=== PATIENT | female | born 1935 | race Caucasian/White ===

== ENCOUNTER 2016-12-24 16:43 | Inpatient (IN) | payer MEDICARE, OTHER ==
--- NOTE | 2016-12-24 18:55 | PCM.HP ---
H&P History of Present Illness - General Date of Service: 12/24/16 Source of Information: Patient History Limitations: Reports: No limitations - History of Present Illness Initial Comments - Free Text/Narative: 81 y o woman with apparent idiopathic cardiomyopathy has been feeling weak and tired lately following an apparent viral infection with sniffles cough to point of gagging and vomiting, as well as some diarrhea which has resolved. Her creatinine has doubled suggesting she is dehydrated vs intrinsic renal disease Onset of Symptoms: Reports: gradual Duration of Symptoms: Reports: Week(s):, Getting worse - Related Data Allergies/Adverse Reactions: Allergies Allergy/AdvReac Type Severity Reaction Status Date / Time morphine Allergy Vomiting Verified 10/09/16 14:11 Home Medications: Home Meds Levothyroxine Sodium 25 mcg PO MOWEFR 10/03/16 [History] Levothyroxine Sodium 50 mcg PO DAILY 10/03/16 [History] Lisinopril [Prinivil] 40 mg PO DAILY 10/03/16 [History] Furosemide [Lasix] 40 mg PO DAILY #30 tablet 10/05/16 [Rx] Metoprolol Succinate [Toprol XL] 200 mg PO DAILY #30 tab.er 10/05/16 [Rx] Potassium Chloride [Klor-Con M20] 20 meq PO DAILY #30 tab.er 10/05/16 [Rx] Rivaroxaban [Xarelto] 20 mg PO DAILY #30 tablet 10/05/16 [Rx] Past Medical History Cardiovascular History: Reports: Afib, Heart Failure, Hypertension Gastrointestinal History: Reports: Chronic constipation Musculoskeletal History: Reports: Arthritis Endocrine/Metabolic History: Reports: Hypothyroidism, Obesity/BMI 30+. Denies: Diabetes, type II - Infectious Disease History Infectious Disease History: Reports: Chicken pox, Measles, Mumps - Past Surgical History Cardiovascular Surgical History: Reports: None GI Surgical History: Reports: Cholecystectomy Social & Family History - Family History Family Medical History: Noncontributory - Tobacco Use Smoking Status *Q: Never Smoker Second Hand Smoke Exposure: No - Caffeine Use Caffeine Use: Reports: Coffee Caffeine Use Comment: 6 cups/day - Recreational Drug Use Recreational Drug Use: No - Living Situation & Occupation Living situation: Reports: Occupation: unemployed (long time college teacher retired 1999) H&P Review of Systems - Review of Systems: Review Of Systems: See Below General: Reports: weakness, fatigue HEENT: Reports: rhinitis Pulmonary: Reports: Shortness of Breath Cardiovascular: Reports: no symptoms Gastrointestinal: Reports: No symptoms Genitourinary: Reports: no symptoms Musculoskeletal: Reports: no symptoms, shoulder pain (gets injections, more helpful in knees than shoulders), leg pain Skin: Reports: no symptoms Psychiatric: Reports: no symptoms Exam - Exam Exam: See Below - Vital Signs Weight: 114.623 kg - Exam General: alert, oriented HEENT: Conjunctiva clear, Nares patent, Posterior pharynx clear (small pharyngeal opening) Neck: 2+ carotid pulse wo bruit Cardiovascular: irregular rhythm Abdomen: soft. No: tenderness (Female) Exam: Deferred Rectal (Female) Exam: Deferred Back Exam: normal inspection Extremities: normal inspection. No: edema Skin: warm, dry, intact Psychiatric: alert *Q Meaningful Use (ADM) - VTE *Q VTE Criteria *Q: - Stroke *Q Stroke Criteria *Q: - AMI *Q AMI Criteria *Q: Problem List Initiated/Reviewed/Updated: Yes Assessment/Plan Comment:: dilated cardiomyopathy atrial fibrillation azotemia hypothyroidism continue usual meds except diuretics and lisinopril gently hydrate overnight and recheck renal function
[2016-12-24] MEDS ORDERED: Sodium Chloride 0.9% 1,000 ML IV SCH ×3 (19:15→22:15)
[2016-12-25] MEDS: Levothyroxine 25 MCG Tab PO SCH (07:12)
[2016-12-25] MEDS ORDERED: Non-Formulary Medication 1 Each (Rivaroxaban [Xarelto] 20 MG) PO SCH (09:00)
[2016-12-25] MEDS ORDERED: Potassium Chloride 20 MEQ Tab.ER PO SCH (09:00)
[2016-12-25] MEDS: Metoprolol Succinate 100 MG Tab.ER PO SCH (09:53)
[2016-12-25] MEDS: Rivaroxaban 10 MG Tab PO SCH (09:54)
[2016-12-25] MEDS ORDERED: Sodium Chloride 0.9% 1,000 ML IV SCH ×2 (10:45→15:30)
--- NOTE | 2016-12-25 10:56 | PCM.PN ---
- General Info Date of Service: 12/25/16 Admission Dx/Problem (Free Text): Acute renal failure, dehydration Subjective Update: Feels "blah" this morning still. Feels a little stronger, but still has no appetite. Feels like mouth is dry and has "cotton mouth". No chest pain or SOB. Ambulating to bathroom. Functional Status: Reports: pain controlled, tolerating diet, ambulating, urinating - Review of Systems General: Reports: No Symptoms. Denies: Fever HEENT: Reports: no symptoms Pulmonary: Reports: no symptoms. Denies: shortness of breath, cough, sputum Cardiovascular: Denies: Chest Pain, Palpitations, Edema Gastrointestinal: Reports: No symptoms. Denies: Abdominal pain, Nausea, Vomiting Genitourinary: Reports: no symptoms. Denies: dysuria, frequency, burning - Patient Data Vitals - most recent: Last Vital Signs Temp 96.7 F 12/25/16 08:00 Pulse 95 12/25/16 09:53 Resp 20 12/25/16 08:00 BP 101/61 12/25/16 09:53 Pulse Ox 95 12/25/16 08:00 Weight - most recent: 114.623 kg I&O - last 24 hours: Intake & Output 12/24/16 12/25/16 12/25/16 22:59 06:59 14:59 Intake Total 1300 461 Output Total 250 Balance 1050 461 Lab Results last 24 hrs: Laboratory Results - last 24 hr 12/24/16 12/25/16 Range/Units 19:30 05:26 Sodium 135 L 135 L (136-146) mmol/L Potassium 5.6 H 5.6 H (3.5-5.1) mmol/L Chloride 103 105 (98-110) mmol/L Carbon Dioxide 20 L 20 L (21-31) mmol/L BUN 56 H 52 H (6.0-23.0) mg/dL Creatinine 1.5 1.4 (0.6-1.5) mg/dL Est Cr Clr Drug Dosing 29.28 31.25 mL/min Estimated GFR (MDRD) 33.2 36.0 ml/min Glucose 128 H 99 (60-110) mg/dL Calcium 9.3 8.9 (8.8-10.8) mg/dL Med Orders - Current: Current Medications Sodium Chloride (Normal Saline) 1,000 mls @ 75 mls/hr IV ASDIRECTED [facility] Stop: 12/25/16 11:34 Last Admin: 12/24/16 22:26 Dose: 75 mls/hr Sodium Chloride (Normal Saline) 1,000 mls @ 75 mls/hr IV [facility]IRECTED [facility] Levothyroxine Sodium (Levothyroxine) 25 mcg PO MoWeFr@0700 [facility] Levothyroxine Sodium (Levothyroxine) 50 mcg PO DAILY@0700 [facility] Last Admin: 12/25/16 07:12 Dose: 50 mcg Metoprolol Succinate (Toprol Xl) 200 mg PO DAILY [facility] Last Admin: 12/25/16 09:53 Dose: 200 mg Potassium Chloride (Klor-Con M20) 20 meq PO DAILY [facility] Rivaroxaban (Xarelto) 20 mg PO DAILY [facility] Last Admin: 12/25/16 09:54 Dose: 20 mg Discontinued Medications Sodium Chloride (Normal Saline) 1,000 mls @ 75 mls/hr IV .BOLUS [facility] Sodium Chloride (Normal Saline) 1,000 mls @ 75 mls/hr IV ASDIRECTED [facility] - Exam General: alert, oriented, cooperative HEENT: No: Mucous membr. moist/pink (mouth dry appearing) Lungs: Clear to auscultation, Normal respiratory effort Cardiovascular: Regular Rate, Regular Rhythm, No Murmurs Abdomen: bowel sounds present, soft, no tenderness, no distension Extremities: edema (+1-trace edema to BLE. ) Skin: warm, dry, intact Neurological: no new focal deficit Psy/Mental Status: alert, normal affect, normal mood - Problem List & Annotations (1) Atrial fibrillation SNOMED Code(s): 66286969 Code(s): I48.91 - UNSPECIFIED ATRIAL FIBRILLATION Status: Chronic Current Visit: No Qualifiers: Atrial fibrillation type: chronic Qualified Code(s): I48.2 - Chronic atrial fibrillation (2) Congestive heart failure SNOMED Code(s): 29305656 Code(s): I50.9 - HEART FAILURE, UNSPECIFIED Status: Chronic Current Visit : No Qualifiers: Congestive heart failure type: systolic Congestive heart failure chronicity : chronic Qualified Code(s): I50.22 - Chronic systolic (congestive) heart failure (3) Constipation SNOMED Code(s): 68508669 Code(s): K59.00 - CONSTIPATION, UNSPECIFIED Status: Chronic Current Visit : No Qualifiers: Constipation type: unspecified constipation type Qualified Code(s): K59.00 - Constipation, unspecified (4) Hypertension SNOMED Code(s): 71030262 Code(s): I10 - ESSENTIAL (PRIMARY) HYPERTENSION Status: Chronic Current Visit: No Qualifiers: Hypertension type: essential hypertension Qualified Code(s): I10 - Essential (primary) hypertension (5) Hypothyroidism SNOMED Code(s): 31129706 Code(s): E03.9 - HYPOTHYROIDISM, UNSPECIFIED Status: Chronic Current Visit: No Qualifiers: Hypothyroidism type: unspecified Qualified Code(s): E03.9 - Hypothyroidism , unspecified (6) Acute kidney injury SNOMED Code(s): 71154585 Code(s): N17.9 - ACUTE KIDNEY FAILURE, UNSPECIFIED Status: Acute Current Visit: Yes - Problem List Review Problem List Initiated/Reviewed/Updated: Yes - My Orders Last 24 Hours: My Active Orders 12/25/16 10:45 Sodium Chloride 0.9% @ 75 MLS/HR(1,000ml) Sodium Chloride 0.9% [Normal Saline] 1,000 ml IV ASDIRECTED - Plan Plan:: dilated cardiomyopathy atrial fibrillation azotemia hypothyroidism continue usual meds except diuretics and lisinopril gently hydrate overnight and recheck renal function 12/25/2016; 1. Acute renal injury: Slight improvement today. Will continue gentle fluids, monitoring closely fluid status. Will continue to hold Lisinopril and Lasix. Was having diarrhea and vomiting at home while continuing to take PO meds. Likely dehydrated, BP slightly hypotensive, 90-100s SBP. Monitor 2. Afib: Continue Metoprolol and Xarelto. Telemetry monitoring 3. Hyperkalemia: 5.6 today, will give small dose of Kayexalate. Now feeling constipated, has chronic constipation. 4. Hypothyroid: Continue Levothyroxine. VTE Xarelto Dispo: 1-2 days pending improvement.
[2016-12-25] MEDS ORDERED: Sodium Polystyrene Sulfonate 15 GM/60 ML Susp 60 ML Bot PO ONE (10:59)
--- NOTE | 2016-12-25 19:32 | CONS ---
DATE OF CONSULTATION: 12/25/2016 DATE OF : 1935 PRIMARY CARE PHYSICIAN: None PCP REASON FOR CONSULTATION: Managing atrial fibrillation, CULLEN, and medication management. HISTORY OF PRESENT ILLNESS: This is an 81-year-old female with history of chronic persistent atrial fibrillation on Xarelto, hypertension, hypothyroidism, and normal coronaries. She was seen by me in the clinic because of followup; however, she stated that over the past 10 days, she is being sick, has productive cough, no fever, and over the past two days she has the frequent diarrhea four times a day, it was watery, no abdominal pain, and she lost her appetite. In the clinic, her creatinine was rising from 0.7-1.5 and potassium was on the high side and her blood pressure was low in the clinic 80/60. That was the reason, she was admitted to the hospital. In the hospital, she was given the IV fluids pretty much 1000. Currently on normal saline at the rate of 75 mL/h. Her creatinine slightly improved to 1.4 and her diuretic including Aldactone and furosemide were on hold as well as ANTWAN inhibitor. CURRENT MEDICATIONS: Metoprolol XL 200 mg once a day, Xarelto, and levothyroxine. PAST MEDICAL HISTORY: Chronic persistent atrial fibrillation, hypertension, hypothyroidism, and nonischemic cardiomyopathy with ejection fraction of 30% to 35%. SOCIAL HISTORY: Occasionally drinks. No drug use. Nonsmoker. FAMILY HISTORY: Mother had a history of a stroke. Father had a history of hypertension. REVIEW OF SYSTEMS: A 12-point has been negative except indicated in the HPI. CARDIAC TESTING: Echocardiogram September 2016, ejection fraction 30% to 35% by atrial enlargement, [id number] MR, [id number] TR, normal aortic root, and on cardiac catheterization in November 2016 showed no significant CAD, LVEDP is 10. PHYSICAL EXAMINATION: VITAL SIGNS: Heart rate is 74; blood pressure is improving, actually initially it was 90/50, currently it is 139/99; and O2 saturation is 95% on room air; respiration rate is 20; temperature is 35.8. HEENT: Not pale. No jaundice. NECK: JVD is slightly elevated. HEART: Normal S1, S2. Totally irregular. Pansystolic murmur. LUNGS: Bilateral minimal crackles. No wheezing. ABDOMEN: Soft, nontender. Bowel sounds present. No hepatosplenomegaly. LEGS: 1+ edema bilaterally. INVESTIGATIONS: CBC showed WBCs 16, hematocrit of 39, platelet count of 362. Sodium 135, potassium 4.8, BUN 47, creatinine 1.3. Liver function is normal. ASSESSMENT AND PLAN: This is an 81-year-old female with nonischemic cardiomyopathy, chronic persistent atrial fibrillation on Xarelto, hypertension, hypothyroidism, ejection fraction of 30% to 35% with acute kidney injury most likely due to dehydration. She is getting gentle hydration right now. I agree with a rate of 75 mL/h. I would probably resume her back a half dose of Aldactone and furosemide, and I will resume the ANTWAN inhibitor as an outpatient and I will follow her as well. DAVIE / BENEDICT /[id number]
[2016-12-26] MEDS: Levothyroxine 25 MCG Tab PO SCH (06:14)
[2016-12-26] MEDS ORDERED: Levothyroxine 25 MCG Tab PO SCH (07:00)
[2016-12-26] MEDS: Rivaroxaban 10 MG Tab PO SCH (09:06)
[2016-12-26] MEDS: Metoprolol Succinate 100 MG Tab.ER PO SCH (09:09)
[2016-12-26 09:10] VITALS: BP 92/56
--- NOTE | 2016-12-26 09:23 | PCM.DCSUM1 ---
Discharge Summary - Hospital Course Brief History: This 81 year old female with pmh of atrial fibrilliaton on Xarelto for anticoagulation, HTN, and CHF presented with approximately 1 week of illness including N/V diarrhea and malaise. She has been taking medications as prescribed. She denied fever or chills, but reported marked weakness and malaise. In the ED Na 135, K+5.6, BUN 56, Cr 1.5. Baseline BUN/Cr 18/0.7. She takes ANTWAN inhibitor and Lasix at home. She was admitted due to dehydration and CULLEN. - Discharge Data Discharge Date: 12/26/16 Discharge Disposition: Home, Self-Care 01 Condition: Good - Discharge Diagnosis/Problem(s) (1) Atrial fibrillation SNOMED Code(s): 09926417 ICD Code: I48.91 - UNSPECIFIED ATRIAL FIBRILLATION Status: Chronic Current Visit: No Qualifiers: Atrial fibrillation type: chronic Qualified Code(s): I48.2 - Chronic atrial fibrillation (2) Congestive heart failure SNOMED Code(s): 40675350 ICD Code: I50.9 - HEART FAILURE, UNSPECIFIED Status: Chronic Current Visit: No Qualifiers: Congestive heart failure type: systolic Congestive heart failure chronicity : chronic Qualified Code(s): I50.22 - Chronic systolic (congestive) heart failure (3) Constipation SNOMED Code(s): 97576992 ICD Code: K59.00 - CONSTIPATION, UNSPECIFIED Status: Chronic Current Visit: No Qualifiers: Constipation type: unspecified constipation type Qualified Code(s): K59.00 - Constipation, unspecified (4) Hypertension SNOMED Code(s): 96816836 ICD Code: I10 - ESSENTIAL (PRIMARY) HYPERTENSION Status: Chronic Current Visit: No Qualifiers: Hypertension type: essential hypertension Qualified Code(s): I10 - Essential (primary) hypertension (5) Hypothyroidism SNOMED Code(s): 48657752 ICD Code: E03.9 - HYPOTHYROIDISM, UNSPECIFIED Status: Chronic Current Visit: No Qualifiers: Hypothyroidism type: unspecified Qualified Code(s): E03.9 - Hypothyroidism , unspecified (6) Acute kidney injury SNOMED Code(s): 02247280 ICD Code: N17.9 - ACUTE KIDNEY FAILURE, UNSPECIFIED Status: Acute Current Visit: Yes - Patient Summary/Data Consults: Consultations 12/24/16 19:12 Consult to Physician [CONS] Routine - Patient Instructions Diet: Heart Healthy Diet, Low Sodium Activity: As Tolerated Driving: May Drive Today Showering/Bathing: May Shower Notify Provider of: Fever, Increased Pain, Swelling and Redness, Drainage, Nausea and/or Vomiting - Discharge Plan Home Medications: Home Meds Levothyroxine Sodium 25 mcg PO MOWEFR 10/03/16 [History] Levothyroxine Sodium 50 mcg PO DAILY 10/03/16 [History] Metoprolol Succinate [Toprol XL] 200 mg PO DAILY #30 tab.er 10/05/16 [Rx] Potassium Chloride [Klor-Con M20] 20 meq PO DAILY #30 tab.er 10/05/16 [Rx] Rivaroxaban [Xarelto] 20 mg PO DAILY #30 tablet 10/05/16 [Rx] Furosemide [Lasix] 40 mg PO DAILY #30 tablet 12/26/16 [Rx] Referrals: Vincent No MD [Physician] - Zach Mendieta MD [Physician] - - Discharge Summary/Plan Comment DC Time >30 min.: No Discharge Summary/Plan Comment: Discharge Diagnoses: Dehydration CULLEN HTN CHF Afib on chronic anticoagulation Gloria was admitted and treated for 2 days with gentle fluids. BUN and Cr improved 38 and 1.0 today. Appetite is improving and she is taking oral fluids in well. She has not had any diarrhea or N/V since admission. She is doing well this morning and is feeling good to go home. Dr. No was consulted and recommended holding ANTWAN until outpatient follow up and cutting her Lasix in half until follow up as well. Will arrange follow up with Dr. No and Dr. Mendieta, PCP in 1 week. She is to return to clinic or ED if concerns should arise. - General Info Date of Service: 12/26/16 Admission Dx/Problem (Free Text: Acute renal failure, dehydration Subjective Update: Sitting up in chair today, finished breakfast. Feeling really good, didn't sleep well, but this is not unusual for her. Denies any chest pain Or SOB. She is eager for discharge. Functional Status: Reports: pain controlled, tolerating diet, ambulating, urinating - Review of Systems General: Reports: No Symptoms. Denies: Fever, Malaise HEENT: Reports: no symptoms. Denies: headaches, sinus congestion, sore throat Pulmonary: Reports: no symptoms. Denies: shortness of breath, cough, sputum Cardiovascular: Reports: No Symptoms. Denies: Chest Pain, Palpitations Gastrointestinal: Reports: No symptoms. Denies: Abdominal pain, Nausea, Vomiting Genitourinary: Reports: no symptoms. Denies: dysuria, frequency, burning Musculoskeletal: Reports: no symptoms Skin: Reports: no symptoms Neurological: Reports: No Symptoms Psychiatric: Reports: no symptoms - Patient Data Vitals - Most Recent: Last Vital Signs Temp 98.7 F 12/26/16 08:00 Pulse 85 12/26/16 08:00 Resp 18 12/26/16 08:00 BP 101/59 L 12/26/16 08:00 Pulse Ox 90 L 12/26/16 08:00 Weight - Most Recent: 105.596 kg I&O - Last 24 hours: Intake & Output 12/25/16 12/26/16 12/26/16 22:59 06:59 14:59 Intake Total 1077 850 Output Total 700 1025 Balance 377 -175 Lab Results - Last 24 hrs: Laboratory Results - last 24 hr 12/25/16 12/26/16 12/26/16 Range/Units 14:44 04:28 04:28 WBC 8.84 (4.0-11.0) K/uL RBC 3.85 L (4.30-5.90) M/uL Hgb 11.7 L (12.0-16.0) g/dL Hct 36.6 (36.0-46.0) % MCV 95.1 (80.0-98.0) fL MCH 30.4 (27.0-32.0) pg MCHC 32.0 (31.0-37.0) g/dL RDW Std Deviation 54.7 (28.0-62.0) fl RDW Coeff of Eunice 16 H (11.0-15.0) % Plt Count 367 (150-400) K/uL MPV 9.00 (7.40-12.00) fL Add Manual Diff YES Neutrophils % (Manual) 54 (48.0-80.0) % Band Neutrophils % 3 % Lymphocytes % (Manual) 28 (16.0-40.0) % Monocytes % (Manual) 2 (0.0-15.0) % Eosinophils % (Manual) 4 (0.0-7.0) % Basophils % (Manual) 1 (0.0-1.5) % Metamyelocytes % 8 % Nucleated RBC % 0.0 /100WBC Absolute Seg Neuts 4.8 Band Neutrophils # 0.3 Lymphocytes # (Manual) 2.5 Monocytes # (Manual) 0.2 Eosinophils # (Manual) 0.4 Basophils # (Manual) 0 Absolute Metamyelocyte 0.7 Nucleated RBCs # 0 K/uL Sodium 135 L 138 (136-146) mmol/L Potassium 4.8 4.9 (3.5-5.1) mmol/L Chloride 105 107 (98-110) mmol/L Carbon Dioxide 18 L 21 (21-31) mmol/L BUN 47 H 38 H (6.0-23.0) mg/dL Creatinine 1.3 1.0 (0.6-1.5) mg/dL Est Cr Clr Drug Dosing 33.66 43.75 mL/min Estimated GFR (MDRD) 39.2 53.1 ml/min Glucose 101 91 (60-110) mg/dL Calcium 8.6 L 8.1 L (8.8-10.8) mg/dL Med Orders - Current: Current Medications Levothyroxine Sodium (Levothyroxine) 25 mcg PO MoWeFr@0700 [facility] Last Admin: 12/26/16 06:13 Dose: 25 mcg Levothyroxine Sodium (Levothyroxine) 50 mcg PO DAILY@0700 [facility] Last Admin: 12/26/16 06:14 Dose: 50 mcg Metoprolol Succinate (Toprol Xl) 200 mg PO DAILY [facility] Last Admin: 12/25/16 09:53 Dose: 200 mg Rivaroxaban (Xarelto) 20 mg PO DAILY [facility] Last Admin: 12/25/16 09:54 Dose: 20 mg Discontinued Medications Sodium Chloride (Normal Saline) 1,000 mls @ 75 mls/hr IV .BOLUS [facility] Sodium Chloride (Normal Saline) 1,000 mls @ 75 mls/hr IV ASDIRECTED [facility] Sodium Chloride (Normal Saline) 1,000 mls @ 75 mls/hr IV ASDIRECTED [facility] Stop: 12/25/16 11:34 Last Admin: 12/24/16 22:26 Dose: 75 mls/hr Sodium Chloride (Normal Saline) 1,000 mls @ 75 mls/hr IV ASDIRECTED [facility] Last Admin: 12/25/16 11:04 Dose: 75 mls/hr Sodium Chloride (Normal Saline) 1,000 mls @ 75 mls/hr IV ASDIRECTED [facility] Stop: 12/26/16 00:04 Last Admin: 12/25/16 15:41 Dose: Not Given Potassium Chloride (Klor-Con M20) 20 meq PO DAILY [facility] Sodium Polystyrene Sulfonate (Kayexalate) 15 gm PO ONETIME ONE Stop: 12/25/16 11:00 Last Admin: 12/25/16 11:07 Dose: 15 gm - Exam General: Reports: alert, oriented, cooperative Neck: Reports: supple, no JVD Lungs: Reports: Clear to auscultation, Normal respiratory effort Cardiovascular: Reports: Regular Rate, Regular Rhythm Abdomen: Reports: bowel sounds present, soft, no tenderness, no distension Extremities: Reports: edema (trace +1 non-pitting edema to BLE) Wound/Incisions: Reports: healing well Neurological: Reports: no new focal deficit Psy/Mental Status: Reports: alert, normal affect, normal mood *Q Meaningful Use (DIS) - VTE *Q VTE Criteria *Q: VTE Pharmacological Contraindications *Q: Bld Coagulation Disorder - Stroke *Q Stroke Criteria *Q: - AMI *Q AMI Criteria *Q:
== END 2016-12-26 10:40 | disposition home or self-care (01) | DRG 309 ==
LOC: MW.MS 16:43
PROVIDERS: ADMIT Internal Medicine; ATTEND Internal Medicine
DX: I48.2 Chronic atrial fibrillation (principal); I50.22 Chronic systolic (congestive) heart failure; N17.9 Acute kidney failure, unspecified; K59.00 Constipation, unspecified; I10 Essential (primary) hypertension; E03.9 Hypothyroidism, unspecified; I42.9 Cardiomyopathy, unspecified; E86.0 Dehydration; Z79.899 Other long term (current) drug therapy; Z88.5 Allergy status to narcotic agent
CPT/HCPCS: 36415; 80048; 85025; A9270-GY; J7040

== ENCOUNTER → 2016-12-24 | Outpatient (CLI) | payer MEDICARE, OTHER | LOC: MW.CHIM 15:05 | PROVIDERS: ATTEND Internal Medicine | DX: I42.9 Cardiomyopathy, unspecified (principal); E03.9 Hypothyroidism, unspecified; I10 Essential (primary) hypertension; I11.0 Hypertensive heart disease with heart failure | CPT/HCPCS: 36415; 80053; 83880; 84443; 85025 ==

== ENCOUNTER → 2017-01-01 | Outpatient (CLI) | payer MEDICARE, OTHER | LOC: MW.CHIM 13:54 | PROVIDERS: ATTEND Internal Medicine | DX: R19.7 Diarrhea, unspecified (principal); I11.0 Hypertensive heart disease with heart failure; I48.1 Persistent atrial fibrillation; I42.9 Cardiomyopathy, unspecified; Z79.01 Long term (current) use of anticoagulants | CPT/HCPCS: 36415; 80048; 83880; 99214 ==

== ENCOUNTER 2018-05-25 08:45 | Emergency (ER) | payer MEDICARE, OTHER ==
--- NOTE | 2018-05-25 10:22 | EDM.PDOC ---
ED HPI GENERAL MEDICAL PROBLEM - General Chief Complaint: Lower Extremity Injury/Pain Stated Complaint: RT KNEE PAIN Time Seen by Provider: 05/25/18 10:18 Source of Information: Reports: Patient History Limitations: Reports: No Limitations - History of Present Illness INITIAL COMMENTS - FREE TEXT/NARRATIVE: HISTORY AND PHYSICAL: History of present illness: Patient is an 82-year-old female here with complaint of right knee pain and swelling. She states she woke up with it yesterday, denies any injury or trauma. She has OA of knees bilaterally and gets intra-articular steroid injections with Dr. Paul's office regularly. Patient normally ambulates without assistance but is using a walking currently. She denies any fevers, chills, chest pain, shortness of breath, nausea, vomiting, abdominal pain, calf pain, thigh pain. Review of systems: As per history of present illness and below otherwise all systems reviewed and negative. Past medical history: As per history of present illness and as reviewed below otherwise noncontributory. Surgical history: As per history of present illness and as reviewed below otherwise noncontributory. Social history: No reported history of drug or alcohol abuse. Family history: As per history of present illness and as reviewed below otherwise noncontributory. Physical exam: General: Patient sitting comfortably in no acute distress and nontoxic appearing HEENT: Atraumatic, normocephalic, pupils reactive, negative for conjunctival pallor or scleral icterus, mucous membranes moist, throat clear, neck supple, nontender, trachea midline. No meningeal signs. Lungs: Clear to auscultation, breath sounds equal bilaterally, chest nontender. Heart: S1S2, regular, negative for clicks, rubs, or overt murmur. 1+ pitting edema bilaterally. Abdomen: Soft, nondistended, nontender. Negative for masses or hepatosplenomegaly. Negative for costovertebral tenderness. Pelvis: Stable nontender. Genitourinary: Deferred. Rectal: Deferred. Extremities: right knee is swollen and slightly warm to touch without erythema. Pain to palpation of anterior and medial knee. Pain with flexion of the knee, ROM limited due to swelling. negative for cords or calf pain. Neurovascular unremarkable. Neuro: Awake, alert, oriented. Cranial nerves II through XII unremarkable. Cerebellum unremarkable. Motor and sensory unremarkable throughout. Exam nonfocal. Notes: Patient does live alone but will have daughter stay with her to help her get around until she can see orthopedics. Diagnostics: x-ray right knee Therapeutics: [facility] 5/325 Prescriptions: [facility] 5/325 #12 Impression: Right knee pain/effusion Plan: 1. Ice, elevate, and take norco as needed for severe pain. 2. Follow up with orthopedics, call number in the morning to schedule appointment 3. Return to ED as needed as discussed Definitive disposition and diagnosis as appropriate pending reevaluation and review of above. Right Knee Pain Score (Numeric/FACES): 9 - Related Data Allergies Allergy/AdvReac Type Severity Reaction Status Date / Time morphine Allergy Vomiting Verified 05/25/18 09:49 Home Meds: Home Meds Levothyroxine Sodium 25 mcg PO DAILY 10/03/16 [History] Levothyroxine Sodium 25 mcg PO MOWEFR 10/03/16 [History] Metoprolol Succinate [Toprol XL] 200 mg PO DAILY #30 tab.er 10/05/16 [Rx] Rivaroxaban [Xarelto] 20 mg PO DAILY #30 tablet 10/05/16 [Rx] Furosemide [Lasix] 40 mg PO DAILY #30 tablet 12/26/16 [Rx] Lisinopril 20 mg PO DAILY 05/25/18 [History] Omeprazole 40 mg PO DAILY 05/25/18 [History] Spironolactone [Aldactone] 12.5 mg PO DAILY 05/25/18 [History] traMADol [Ultram] 50 mg PO ASDIRECTED PRN 05/25/18 [History] Past Medical History HEENT History: Reports: Cataract, Impaired Vision Other HEENT History: wears glasses Cardiovascular History: Reports: Afib, Heart Failure, Hypertension Respiratory History: Reports: None Gastrointestinal History: Reports: Chronic Constipation Genitourinary History: Reports: None BED BUG EXTERMINATOR History: Reports: Musculoskeletal History: Reports: Arthritis Neurological History: Reports: None Psychiatric History: Reports: None Endocrine/Metabolic History: Reports: Hypothyroidism, Obesity/BMI 30+ Hematologic History: Reports: None Immunologic History: Reports: None Oncologic (Cancer) History: Reports: None Dermatologic History: Reports: Cellulitis - Infectious Disease History Infectious Disease History: Reports: Chicken Pox, Measles, Mumps - Past Surgical History Head Surgeries/Procedures: Reports: None HEENT Surgical History: Reports: Tonsillectomy Cardiovascular Surgical History: Reports: None Respiratory Surgical History: Reports: None Female Surgical History: Reports: Hysterectomy Social & Family History - Family History Family Medical History: Noncontributory HEENT: Reports: None Cardiac: Reports: None Respiratory: Reports: None GI: Reports: None : Reports: None OBGYN: Reports: None Musculoskeletal: Reports: None Neurological: Reports: None Psychiatric: Reports: None Endocrine/Metabolic: Reports: None Hematologic: Reports: None Immunologic: Reports: None Dermatologic: Reports: None Oncologic: Reports: None - Tobacco Use Smoking Status *Q: Never Smoker - Caffeine Use Caffeine Use: Reports: Coffee, Soda, Tea Caffeine Use Comment: 6 cups/day - Recreational Drug Use Recreational Drug Use: No - Living Situation & Occupation Living situation: Reports: Occupation: Unemployed Review of Systems - Review of Systems Review Of Systems: ROS reveals no pertinent complaints other than HPI. ED EXAM, GENERAL - Physical Exam Exam: See Below (see dictation) Course - Vital Signs Last Recorded V/S: Last Vital Signs Temp 36.4 C 05/25/18 09:45 Pulse 95 05/25/18 09:45 Resp 20 05/25/18 09:45 BP 148/110 H 05/25/18 09:45 Pulse Ox 95 05/25/18 09:45 - Orders/Labs/Meds Orders: Active Orders 24 hr Category Date Time Status Knee 3V Rt [CR] Stat Exams 05/25/18 09:48 Taken Meds: Medications Discontinued Medications Generic Name Dose Route Start Last Admin Trade Name Freq PRN Reason Stop Dose Admin Hydrocodone Bitart/Acetaminophen 1 tab 05/25/18 10:49 [facility] 325-5 Mg PO 05/25/18 10:50 ONETIME ONE Departure - Departure Time of Disposition: 11:09 Disposition: Home, Self-Care 01 Condition: Good Clinical Impression: Right knee pain - Discharge Information Referrals: Zach Mendieta MD [Primary Care Provider] - Forms: ED Department Discharge Additional Instructions: The following information is given to patients seen in the emergency department who are being discharged to home. This information is to outline your options for follow-up care. We provide all patients seen in our emergency department with a follow-up referral. The need for follow-up, as well as the timing and circumstances, are variable depending upon the specifics of your emergency department visit. If you don't have a primary care physician on staff, we will provide you with a referral. We always advise you to contact your personal physician following an emergency department visit to inform them of the circumstance of the visit and for follow-up with them and/or the need for any referrals to a consulting specialist. The emergency department will also refer you to a specialist when appropriate. This referral assures that you have the opportunity for follow-up care with a specialist. All of these measure are taken in an effort to provide you with optimal care, which includes your follow-up. Under all circumstances we always encourage you to contact your private physician who remains a resource for coordinating your care. When calling for follow-up care, please make the office aware that this follow-up is from your recent emergency room visit. If for any reason you are refused follow-up, please contact the [facility] Emergency Department at and asked to speak to the emergency department charge nurse. [facility] Specialty Care - Orthopedic Clinic Professional Building [address] [place] [address], [address] [place] [address] 1. Ice, elevate, and take norco as needed for severe pain. 2. Follow up with orthopedics, call number in the morning to schedule appointment 3. Return to ED as needed as discussed
[2018-05-25] MEDS ORDERED: Acetaminophen/HYDROcodone 325-5 MG Tab PO ONE (10:49)
[2018-05-25 11:11] VITALS: BP 123/86
--- NOTE | 2018-05-26 18:18 | CR ---
EXAM DATE: 05/25/18 PATIENT'S AGE: 82 Patient: FRANTZ SANTA Facility: [place], [place] Site . Site : [id number] Study: XRay Knee Right [id number]/[id number] 10:36:56 AM Ordering Physician: Doctor Morton Final Report: INDICATION: 82 year-old female. Right knee pain and swelling. No history of trauma. TECHNIQUE: Three views of the right knee. FINDINGS: Advanced osteoarthritis of the right knee with marked narrowing of the lateral compartment with spurring. Moderately severe narrowing of the medial compartment also with spurring. Narrowing and spurring of the patellofemoral compartment. On the lateral view there is the suggestion of a suprapatellar effusion with 2 calcifications likely loose bodies. IMPRESSION: Tricompartment advanced degenerative arthritis. Suprapatellar effusion with 1 or 2 small calcified loose bodies in the suprapatellar space. Consider MRI for further characterization. Dictated by Jonel Lundberg MD @ May 25 2018 10:53AM (Electronic Signature) Report Signed by Proxy. ISSA
== END 2018-05-25 11:25 | disposition home or self-care (01) ==
LOC: MW.ED 08:45
DX: M25.461 Effusion, right knee (principal); I11.0 Hypertensive heart disease with heart failure; I50.9 Heart failure, unspecified; E03.9 Hypothyroidism, unspecified; I48.91 Unspecified atrial fibrillation; Z79.899 Other long term (current) drug therapy
CPT/HCPCS: 73562; 99283; A9270

== ENCOUNTER 2020-07-10 15:47 | Observation (INO) | payer MEDICARE, OTHER ==
--- NOTE | 2020-07-10 16:47 | EDM.PDOC ---
<Marin Sutton - Last Filed: 07/10/20 18:57> ED HPI GENERAL MEDICAL PROBLEM - General Chief Complaint: General Stated Complaint: SWOLLEN JOINT PAIN Time Seen by Provider: 07/10/20 15:49 - History of Present Illness INITIAL COMMENTS - FREE TEXT/NARRATIVE: This is an 84-year-old female with a past medical history of atrial fibrillation on rivaroxaban, osteoarthritis of the bilateral knees and the left shoulder, status post right TKA, chronic left hip pain, chronic low back pain, lumbar spinal stenosis, hypothyroidism, hypertension, congestive heart failure presenting with complaints of joint pain. Patient does follow with the orthopedic surgery clinic for left knee pain. Status post right knee TKA. 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 Undergoing injections of hyaluronic acid to the left knee by orthopedic surgery clinic. Chart review from orthopedic surgery clinic also shows known chronic bilateral severe glenohumeral arthritis. She has been getting subacromial injections. She is not able to take NSAIDs due to her medical history and prior history of peptic ulcer disease. It looks like she is currently on diclofenac transdermal gel along with Ultram and Tylenol. These are prescribed by her primary doctor. Today she presents to the emergency department complaining of pain to multiple joints. She complains of a 1 week history of pain to her posterior cervical spine, pain to her left elbow, left hand, left knee, and left ankle. There is no history of trauma to any of these joints. She does have a history of chronic pain to the left knee. She also complains of slightly worsening bilateral lower extremity edema to the legs. She denies any history of polymyalgia rheumatica, myositis, or any autoimmune disease. No recent medication changes. Chart review shows that she is not on a statin medication. Denies any recent fever, denies joint swelling or redness or edema. She is intermittently taking her prescribed home pain medications without much relief. Today she was having so much pain that she was not able to get up and walk so she called police to come help her off the toilet. No other complaints at this point. Denies any numbness or weakness to any of her extremities. ROS: A 10-point review of systems was negative, except as noted in the HPI (or in the ROS section of this note). Past medical history: Reviewed, no additional pertinent history. Surgical history: Reviewed in system, no additional pertinent history. Social history: Reviewed in system, no additional pertinent history. Family history: Reviewed in system, no additional pertinent history. PHYSICAL EXAM Vital signs reviewed. Nursing notes reviewed. Constitutional: Awake, alert, non-distressed. Head: Normocephalic, atraumatic. Eyes: EOMI, conjunctiva normal, no discharge, no scleral icterus. Ears, Nose, Throat: External ears and nose normal, moist oral mucosa. Cardiovascular: 2+ bilateral radial pulses and left DP pulse, capillary refill less than 2 seconds in the left upper extremity and left lower extremity. Pulmonary: normal work of breathing, no accessory muscle use. Abdomen/GI: Soft, nontender, nondistended, no guarding or rigidity, no masses. Musculoskeletal: Moderate tenderness to palpation to the entirety of the left elbow joint, dorsum of the left hand, the lateral and superior aspects of the left patella, and the entirety of the left ankle joint. The neck and cervical spine are nontender and have normal range of motion. There is no evidence of any joint swelling, edema, or erythema to suggest an effusion or septic arthri tis. Integumentary: Appropriate color for ethnicity, warm, dry, no pallor or jaundice, no rash. Neurologic: Alert, answering questions appropriately, normal speech, no facial droop, moving all extremities well. 5/5 strength to the bilateral upper extremities. I am unable to strength test of the knee or ankle joints due to pain limitations. Sensation is intact to light touch to all 4 extremities. Psychiatric: Appropriate mood and affect, normal thought process. This patient was seen and evaluated during the 2019 SARS-CoV-2 novel coronavirus pandemic period. Community viral transmission is ongoing at time of this encounter and the emergency department is operating under pandemic response procedures. left elbow, L shoulder, L knee, L ankle Pain Score (Numeric/FACES): 5 - Related Data Allergies Allergy/AdvReac Type Severity Reaction Status Date / Time morphine Allergy Vomiting Verified 07/10/20 16:28 Home Meds: Home Meds Levothyroxine Sodium 50 mcg PO DAILY 10/03/16 [History] Metoprolol Succinate [Toprol XL] 200 mg PO DAILY #30 tab.er 10/05/16 [Rx] Furosemide [Lasix] 40 mg PO DAILY #30 tablet 12/26/16 [Rx] Lisinopril 5 mg PO DAILY 05/25/18 [History] Omeprazole 40 mg PO DAILY 05/25/18 [History] Spironolactone [Aldactone] 12.5 mg PO DAILY 05/25/18 [History] Blood Thinner 07/10/20 [History] Pantoprazole [ProTONIX] 40 mg PO DAILY 07/10/20 [History] Pregabalin [Lyrica] 1 tab PO BID 07/10/20 [History] methocarbamoL [Methocarbamol] 1 tab PO BID PRN 07/10/20 [History] oxyCODONE HCl/Acetaminophen [Oxycodone-Acetaminophen 5-325] 1 tab PO Q6H PRN 07/10/20 [History] Past Medical History HEENT History: Reports: Cataract, Impaired Vision Other HEENT History: wears glasses Cardiovascular History: Reports: Afib, Heart Failure, Hypertension Respiratory History: Reports: None Gastrointestinal History: Reports: Chronic Constipation Genitourinary History: Reports: None HANDYPERSON History: Reports: Musculoskeletal History: Reports: Arthritis Neurological History: Reports: None Psychiatric History: Reports: None Endocrine/Metabolic History: Reports: Hypothyroidism, Obesity/BMI 30+ Hematologic History: Reports: None Immunologic History: Reports: None Oncologic (Cancer) History: Reports: None Dermatologic History: Reports: Cellulitis - Infectious Disease History Infectious Disease History: Reports: Chicken Pox, Measles, Mumps - Past Surgical History Head Surgeries/Procedures: Reports: None HEENT Surgical History: Reports: Tonsillectomy Cardiovascular Surgical History: Reports: None Respiratory Surgical History: Reports: None GI Surgical History: Reports: Cholecystectomy Female Surgical History: Reports: Hysterectomy Social & Family History - Family History Family Medical History: No Pertinent Family History HEENT: Reports: None Cardiac: Reports: None Respiratory: Reports: None GI: Reports: None : Reports: None OBGYN: Reports: None Musculoskeletal: Reports: None Neurological: Reports: None Psychiatric: Reports: None Endocrine/Metabolic: Reports: None Hematologic: Reports: None Immunologic: Reports: None Dermatologic: Reports: None Oncologic: Reports: None - Tobacco Use Tobacco Use Status *Q: Never Tobacco User - Caffeine Use Caffeine Use: Reports: Coffee, Soda, Tea Caffeine Use Comment: 6 cups/day - Recreational Drug Use Recreational Drug Use: No - Living Situation & Occupation Living situation: Reports: Occupation: Unemployed ED ROS GENERAL - Review of Systems Review Of Systems: See Below ED EXAM, GENERAL - Physical Exam Exam: See Below Course - Vital Signs Text/Narrative:: 84-year-old female complaining of pain in numerous joints including the left elbow, left hand, left knee, and left ankle without any history of trauma. Patient hemodynamically stable, afebrile, well-appearing, looks nontoxic. Differential diagnosis includes but is not limited to: Osteoarthritis, polymyalgia rheumatica, myositis, rhabdomyolysis, thyroid disease, electrolyte disturbance, myalgias, chronic joint pain, occult trauma, and many others. 1719: Patient is neurovascularly intact in the left upper and lower extremities. There is no evidence of joint effusion to suggest gout or septic arthritis. I see no deformities or obvious trauma. We are going to administer some pain medications and obtain x-rays of the left elbow and hand, left knee and ankle. Patient is resting comfortably. 1856: I reviewed her x-rays and they show no obvious injury but do look diffusely arthritic. We are still waiting for her labs to resolve the time of shift change. I signed the patient out to my colleague Dr. Lopez. Anticipate the patient will be admitted to the hospital at least on observation for physical therapy evaluation and to address her lower extremity edema, may need nephrology social worker evaluation as well. Refer to Dr. Lopez's note for the disposition please Departure - Departure Disposition: Refer to Observation Clinical Impression: Weakness, Joint pain, Inability to walk Hypothyroidism Qualifiers: Hypothyroidism type: unspecified Qualified Code(s): E03.9 - Hypothyroidism, unspecified - Discharge Information Referrals: Zach Mendieta MD [Primary Care Provider] - Forms: ED Department Discharge Sepsis Event Note (ED) - Evaluation Sepsis Screening Result: No Definite Risk <Kiran Lopez - Last Filed: 07/10/20 20:31> Course - Vital Signs Text/Narrative:: This patient is in no acute distress when she does not try to ambulate. However she lives alone. She is unable to get up because of her joint pain. She is unable to take care of her self. She is on thyroid replacement and her TSH is elevated. Free T4 pending. Case discussed with Dr. Son and she had agreed to place the patient in observation and for immobility or thyroid correction takes more than 2 midnights she may become a full admission and placement issue. At this point COVID-19 test is pending. Patient is asymptomatic. If she is negative we will place her in observation tonight. 2028 hours Covid 19 is negative and patient will be admitted to Dr. Garzon initially as observation. Last Recorded V/S: Last Vital Signs Temp 36.8 C 07/10/20 16:23 Pulse 112 H 07/10/20 20:05 Resp 18 07/10/20 16:23 BP 124/72 07/10/20 20:05 Pulse Ox 91 L 07/10/20 20:05 - Orders/Labs/Meds Orders: Active Orders 24 hr Category Date Time Status Sodium Chloride 0.9% [Saline Flush] Med 07/10/20 18:55 Active 10 ml FLUSH ASDIRECTED PRN Sodium Chloride 0.9% [Saline Flush] Med 07/10/20 18:55 Active 2.5 ml FLUSH ASDIRECTED PRN Saline Lock Insert [OM.PC] Stat Oth 07/10/20 18:55 Ordered Medication Orders Sodium Chloride (Saline Flush) 10 ml FLUSH ASDIRECTED PRN PRN Reason: Keep Vein Open Sodium Chloride (Saline Flush) 2.5 ml FLUSH ASDIRECTED PRN PRN Reason: Keep Vein Open Labs: Laboratory Tests 07/10/20 07/10/20 07/10/20 Range/Units 19:07 19:07 19:07 WBC 10.93 (4.0-11.0) K/uL RBC 3.88 L (4.30-5.90) M/uL Hgb 12.6 (12.0-16.0) g/dL Hct 37.5 (36.0-46.0) % MCV 96.6 (80.0-98.0) fL MCH 32.5 H (27.0-32.0) pg MCHC 33.6 (31.0-37.0) g/dL RDW Std Deviation 48.1 (28.0-62.0) fl RDW Coeff of Eunice 14 (11.0-15.0) % Plt Count 374 (150-400) K/uL MPV 8.90 (7.40-12.00) fL Neut % (Auto) 65.7 (48.0-80.0) % Lymph % (Auto) 19.5 (16.0-40.0) % Grant % (Auto) 14.2 (0.0-15.0) % Eos % (Auto) 0.4 (0.0-7.0) % Baso % (Auto) 0.2 (0.0-1.5) % Neut # (Auto) 7.2 H (1.4-5.7) K/uL Lymph # (Auto) 2.1 (0.6-2.4) K/uL Grant # (Auto) 1.6 H (0.0-0.8) K/uL Eos # (Auto) 0.0 (0.0-0.7) K/uL Baso # (Auto) 0.0 (0.0-0.1) K/uL Nucleated RBC % 0.0 /100WBC Nucleated RBCs # 0 K/uL INR Sodium 135 L (136-145) mmol/L Potassium 3.3 L (3.5-5.1) mmol/L Chloride 98 (98-107) mmol/L Carbon Dioxide 27.2 (21.0-32.0) mmol/L BUN 18 (7.0-18.0) mg/dL Creatinine 1.0 (0.6-1.0) mg/dL Est Cr Clr Drug Dosing 40.00 mL/min Estimated GFR (MDRD) 52.7 ml/min Glucose 115 H (74-106) mg/dL Calcium 8.3 L (8.5-10.1) mg/dL Total Bilirubin 1.3 H (0.2-1.0) mg/dL AST 25 (15-37) IU/L ALT 14 (14-63) IU/L Alkaline Phosphatase 128 H (46-116) U/L Creatine Kinase 62 (26-308) U/L Troponin I < 0.050 (0.000-0.056) ng/mL Total Protein 6.7 (6.4-8.2) g/dL Albumin 2.4 L (3.4-5.0) g/dL Globulin 4.3 H (2.6-4.0) g/dL Albumin/Globulin Ratio 0.6 L (0.9-1.6) Free T4 1.55 H (0.76-1.46) ng/dL TSH 3rd Generation 5.93 H (0.36-3.74) uIU/mL SARS-CoV-2 RNA (JUAN) (NEGATIVE) 07/10/20 07/10/20 Range/Units 19:07 19:10 WBC (4.0-11.0) K/uL RBC (4.30-5.90) M/uL Hgb (12.0-16.0) g/dL Hct (36.0-46.0) % MCV (80.0-98.0) fL MCH (27.0-32.0) pg MCHC (31.0-37.0) g/dL RDW Std Deviation (28.0-62.0) fl RDW Coeff of Eunice (11.0-15.0) % Plt Count (150-400) K/uL MPV (7.40-12.00) fL Neut % (Auto) (48.0-80.0) % Lymph % (Auto) (16.0-40.0) % Grant % (Auto) (0.0-15.0) % Eos % (Auto) (0.0-7.0) % Baso % (Auto) (0.0-1.5) % Neut # (Auto) (1.4-5.7) K/uL Lymph # (Auto) (0.6-2.4) K/uL Grant # (Auto) (0.0-0.8) K/uL Eos # (Auto) (0.0-0.7) K/uL Baso # (Auto) (0.0-0.1) K/uL Nucleated RBC % /100WBC Nucleated RBCs # K/uL INR 1.28 Sodium (136-145) mmol/L Potassium (3.5-5.1) mmol/L Chloride (98-107) mmol/L Carbon Dioxide (21.0-32.0) mmol/L BUN (7.0-18.0) mg/dL Creatinine (0.6-1.0) mg/dL Est Cr Clr Drug Dosing mL/min Estimated GFR (MDRD) ml/min Glucose (74-106) mg/dL Calcium (8.5-10.1) mg/dL Total Bilirubin (0.2-1.0) mg/dL AST (15-37) IU/L ALT (14-63) IU/L Alkaline Phosphatase (46-116) U/L Creatine Kinase (26-308) U/L Troponin I (0.000-0.056) ng/mL Total Protein (6.4-8.2) g/dL Albumin (3.4-5.0) g/dL Globulin (2.6-4.0) g/dL Albumin/Globulin Ratio (0.9-1.6) Free T4 (0.76-1.46) ng/dL TSH 3rd Generation (0.36-3.74) uIU/mL SARS-CoV-2 RNA (JUAN) NEGATIVE (NEGATIVE) Meds: Medications Generic Name Dose Route Start Last Admin Trade Name Freq PRN Reason Stop Dose Admin Sodium Chloride 10 ml 07/10/20 18:55 Saline Flush FLUSH ASDIRECTED PRN Keep Vein Open Sodium Chloride 2.5 ml 07/10/20 18:55 Saline Flush FLUSH ASDIRECTED PRN Keep Vein Open Discontinued Medications Generic Name Dose Route Start Last Admin Trade Name Freq PRN Reason Stop Dose Admin Acetaminophen 1,000 mg 07/10/20 17:10 07/10/20 17:51 Tylenol Extra Strength PO 07/10/20 17:11 1,000 mg ONETIME ONE Administration Lidocaine 700 mg 07/10/20 17:10 07/10/20 17:58 Lidoderm 5% TOP 07/10/20 17:11 700 mg ONETIME ONE Administration Lidocaine 700 mg 07/10/20 17:10 07/10/20 17:58 Lidoderm 5% TOP 07/10/20 17:11 700 mg ONETIME ONE Administration Oxycodone HCl 10 mg 07/10/20 17:10 07/10/20 17:54 Oxycodone PO 07/10/20 17:11 10 mg ONETIME ONE Administration Departure - Departure Time of Disposition: 20:29 Condition: Good Sepsis Event Note (ED) - Focused Exam Vital Signs: Vital Signs Temp Pulse Resp BP Pulse Ox 11/15/20 20:05 112 H 124/72 91 L 07/10/20 16:23 36.8 C 76 18 111/51 L 94 L - My Orders Last 24 Hours: My Active Orders 07/10/20 18:55 Sodium Chloride 0.9% [Saline Flush] 10 ml FLUSH ASDIRECTED PRN Sodium Chloride 0.9% [Saline Flush] 2.5 ml FLUSH ASDIRECTED PRN Saline Lock Insert [OM.PC] Stat - Assessment/Plan Last 24 Hours: My Active Orders 07/10/20 18:55 Sodium Chloride 0.9% [Saline Flush] 10 ml FLUSH ASDIRECTED PRN Sodium Chloride 0.9% [Saline Flush] 2.5 ml FLUSH ASDIRECTED PRN Saline Lock Insert [OM.PC] Stat
[2020-07-10] MEDS ORDERED: oxyCODONE 5 MG Tab PO ONE (17:10)
[2020-07-10] MEDS ORDERED: Lidocaine 5% 700 MG Patch TOP ONE ×2 (17:10)
[2020-07-10] MEDS ORDERED: Acetaminophen 500 MG Tab PO ONE (17:10)
--- NOTE | 2020-07-10 18:38 | CR ---
Indication: Atraumatic ankle pain Technique: Left ankle 3 views Comparison: None Findings: Diffuse soft tissue calcifications about the lower calf. Ankle soft tissue swelling. Mortise intact. No acute fracture. Thickening of the Achilles tendon with chronic heterotopic calcification. Impression: Chronic distal Achilles tendinosis. No acute fracture. Soft tissue swelling without joint effusion. Dictated by Adin Rose MD @ Jul 10 2020 6:35PM Signed by Dr. Adin Rose @ Jul 10 2020 6:38PM
--- NOTE | 2020-07-10 18:40 | CR ---
Indication: atraumatic lt elbow pain Technique: Left elbow 2 views Comparison: None Findings: Normal alignment. No fracture. Small joint effusion may be present. Impression: No fracture. Mild effusion may be present. Dictated by Adin Rose MD @ Jul 10 2020 6:38PM Signed by Dr. Adin Rose @ Jul 10 2020 6:39PM
--- NOTE | 2020-07-10 18:42 | CR ---
Indication: Pain Technique: Left hand 3 views. Comparison: None Findings: Multifocal degenerative joint disease with joint space narrowing and spurring. The most involved joint is the 1st carpometacarpal joint where there is also subchondral cystic change. Chronic deformity at the index finger and little finger DIP joints. No acute fracture. No dislocation. Hypertrophic spurring is several proximal interphalangeal joints. Chondrocalcinosis. Impression: Multifocal degenerative joint disease. Dictated by Adin Rose MD @ Jul 10 2020 6:39PM Signed by Dr. Adin Rose @ Jul 10 2020 6:40PM
--- NOTE | 2020-07-10 18:44 | CR ---
Indication: Pt w/lt patellar pain Technique: Left knee 3 views Comparison: None Findings: Medial and lateral compartment spurring. Normal alignment. Chondrocalcinosis. Soft tissue calcifications medial proximal calf. Small joint effusion with associated densities. Vascular calcifications. Patellofemoral narrowing and spurring. No fracture. Impression: Tricompartmental degenerative joint disease with suprapatellar joint effusion and loose bodies. Chondrocalcinosis. Dictated by Adin Rsoe MD @ Jul 10 2020 6:41PM Signed by Dr. Adin Rose @ Jul 10 2020 6:43PM
[2020-07-10] MEDS ORDERED: Sodium Chloride 0.9% 2.5 ML Syringe FLUSH PRN (18:55)
[2020-07-10] MEDS ORDERED: Sodium Chloride 0.9% 10 ML Syringe FLUSH PRN (18:55)
[2020-07-10 19:54] LABS: BLOOD UREA NITROGEN,BUN 18 mg/dL (7.0-18.0); CARBON DIOXIDE,CO2 27.2 mmol/L (21.0-32.0); CHLORIDE,CL 98 mmol/L (98-107); GLUCOSE RANDOM 115 mg/dL (74-106); POTASSIUM,K 3.3 mmol/L (3.5-5.1); SODIUM,NA 135 mmol/L (136-145)
[2020-07-10] MEDS ORDERED: Albuterol/Ipratropium 3.0-0.5 MG/3 ML Neb Soln NEB PRN (21:09)
[2020-07-10] MEDS ORDERED: Potassium Chloride 10% 20 MEQ/15 ML Soln 30 ML UD Cup PO ONE (21:13)
[2020-07-10] MEDS ORDERED: Enoxaparin 30 MG/0.3 ML Syringe SUBCUT SCH (21:15)
[2020-07-10] MEDS ORDERED: Metoprolol Succinate 100 MG Tab.ER PO ONE (22:54)
[2020-07-10] MEDS ORDERED: Levothyroxine 50 MCG Tab PO ONE (22:57)
--- NOTE | 2020-07-10 23:13 | PCM.HP.2 ---
H&P History of Present Illness - General Date of Service: 07/10/20 Admit Problem/Dx: Admission Diagnosis/Problem Admission Diagnosis/Problem Joint pain - History of Present Illness Initial Comments - Free Text/Narative: Patient is an 84-year-old female from home with a past medical history of atrial fibrillation on rivaroxaban, osteoarthritis of the bilateral knees and the left shoulder, status post right TKA, chronic left hip pain, chronic low back pain, lumbar spinal stenosis, chronic bilateral severe glenohumeral arthritis. hypothyroidism, hypertension, congestive heart failure presenting with complaints of joint pain, severe enough to limit her ADLS, she had to call police when she was unable to get off the toilet. Patient is being followed up by her orthopedic surgeon for chronic left knee pain, Undergoing injections of hyaluronic acid to the left knee by orthopedic surgery clinic. 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 She is also getting subacromial injections. She is not able to take NSAIDs due to her medical history and prior history of peptic ulcer disease. It looks like she is currently on diclofenac transdermal gel along with Ultram and Tylenol. These are prescribed by her primary doctor. Today she presents to the emergency department complaining of pain to multiple joints, no h/o fall, trauma, She also complains of slightly worsening bilateral lower extremity edema to the legs, states she hasn't been eating much and hasnt taken her meds for last few days. Denies any recent fever, denies joint swelling or redness or edema. She is intermittently taking her prescribed home pain medications without much relief. Today she was having so much pain that she was not able to get up and walk so she called police to come help her off the toilet. No other complaints at this point. Denies any numbness or weakness to any of her extremities. X-rays of several joints ruled out acute fracture, P atient was slightly hypokalemic. Patient was admitted for observation. States her neighbors help her out sometimes and she is probably going to live with her daughter in [facility]. left elbow, L shoulder, L knee, L ankle Pain Score (Numeric/FACES): 5 - Related Data Allergies/Adverse Reactions: Allergies Allergy/AdvReac Type Severity Reaction Status Date / Time morphine Allergy Vomiting Verified 07/10/20 21:41 adhesive tape Allergy Blisters Uncoded 07/10/20 21:41 Home Medications: Home Meds Levothyroxine Sodium 50 mcg PO DAILY 10/03/16 [History] Metoprolol Succinate [Toprol XL] 200 mg PO DAILY #30 tab.er 10/05/16 [Rx] Furosemide [Lasix] 40 mg PO DAILY #30 tablet 12/26/16 [Rx] Lisinopril 5 mg PO DAILY 05/25/18 [History] Spironolactone [Aldactone] 12.5 mg PO DAILY 05/25/18 [History] Apixaban [Eliquis] 2.5 mg PO DAILY 07/10/20 [History] Pregabalin [Lyrica] 1 tab PO BID 07/10/20 [History] methocarbamoL [Methocarbamol] 1 tab PO BID PRN 07/10/20 [History] oxyCODONE HCl/Acetaminophen [Oxycodone-Acetaminophen 5-325] 1 tab PO Q4H PRN 07/10/20 [History] timoloL maleate [Timoptic 0.5% Ophth Soln] 1 drop EYERT BID 07/10/20 [History] Past Medical History HEENT History: Reports: Cataract, Impaired Vision Other HEENT History: wears glasses Cardiovascular History: Reports: Afib, Heart Failure, Hypertension Respiratory History: Reports: None Gastrointestinal History: Reports: Chronic Constipation, PUD Genitourinary History: Reports: None [employer] History: Reports: Musculoskeletal History: Reports: Arthritis Neurological History: Reports: None Psychiatric History: Reports: None Endocrine/Metabolic History: Reports: Hypothyroidism, Obesity/BMI 30+ Hematologic History: Reports: None Immunologic History: Reports: None Oncologic (Cancer) History: Reports: None Dermatologic History: Reports: Cellulitis - Infectious Disease History Infectious Disease History: Reports: Chicken Pox, Measles, Mumps - Past Surgical History Head Surgeries/Procedures: Reports: None HEENT Surgical History: Reports: Tonsillectomy Cardiovascular Surgical History: Reports: None Respiratory Surgical History: Reports: None GI Surgical History: Reports: Cholecystectomy, EGD Female Surgical History: Reports: Hysterectomy Social & Family History - Family History Family Medical History: No Pertinent Family History HEENT: Reports: None Cardiac: Reports: None Respiratory: Reports: None GI: Reports: None : Reports: None OBGYN: Reports: None Musculoskeletal: Reports: None Neurological: Reports: None Psychiatric: Reports: None Endocrine/Metabolic: Reports: None Hematologic: Reports: None Immunologic: Reports: None Dermatologic: Reports: None Oncologic: Reports: None - Tobacco Use Tobacco Use Status *Q: Never Tobacco User Second Hand Smoke Exposure: No - Caffeine Use Caffeine Use: Reports: Coffee Other Caffeine Use: 4 cups/day Caffeine Use Comment: 6 cups/day - Recreational Drug Use Recreational Drug Use: No - Living Situation & Occupation Living situation: Reports: Occupation: Unemployed H&P Review of Systems - Review of Systems: Review Of Systems: See Below General: Denies: Fever, Chills, Malaise Pulmonary: Denies: Shortness of Breath, Wheezing Cardiovascular: Denies: Chest Pain, Palpitations, Dyspnea on Exertion Gastrointestinal: Denies: Abdominal Pain, Anorexia, Black Stool Genitourinary: Denies: Dysuria, Frequency, Burning Musculoskeletal: Reports: Neck Pain, Shoulder Pain, Arm Pain, Back Pain, Leg Pain, Joint Pain Skin: Denies: Cyanosis, Jaundice, Mottled Exam - Exam Exam: See Below - Vital Signs Vital Signs: Last Vital Signs Temp 36.2 C 07/10/20 21:43 Pulse 102 H 07/10/20 21:43 Resp 20 07/10/20 21:43 BP 101/61 07/10/20 21:43 Pulse Ox 92 L 07/10/20 21:43 Weight: 94.937 kg - Exam General: Alert, Oriented, Cooperative Neck: Supple Lungs: Clear to Auscultation, Normal Respiratory Effort Cardiovascular: Regular Rate, Regular Rhythm - Patient Data Lab Results Last 24 hrs: Laboratory Results - last 24 hr 07/10/20 07/10/20 07/10/20 Range/Units 19:07 19:07 19:07 WBC 10.93 (4.0-11.0) K/uL RBC 3.88 L (4.30-5.90) M/uL Hgb 12.6 (12.0-16.0) g/dL Hct 37.5 (36.0-46.0) % MCV 96.6 (80.0-98.0) fL MCH 32.5 H (27.0-32.0) pg MCHC 33.6 (31.0-37.0) g/dL RDW Std Deviation 48.1 (28.0-62.0) fl RDW Coeff of [place] 14 (11.0-15.0) % Plt Count 374 (150-400) K/uL MPV 8.90 (7.40-12.00) fL Neut % (Auto) 65.7 (48.0-80.0) % Lymph % (Auto) 19.5 (16.0-40.0) % [place] % (Auto) 14.2 (0.0-15.0) % Eos % (Auto) 0.4 (0.0-7.0) % Baso % (Auto) 0.2 (0.0-1.5) % Neut # (Auto) 7.2 H (1.4-5.7) K/uL Lymph # (Auto) 2.1 (0.6-2.4) K/uL [place] # (Auto) 1.6 H (0.0-0.8) K/uL Eos # (Auto) 0.0 (0.0-0.7) K/uL Baso # (Auto) 0.0 (0.0-0.1) K/uL Nucleated RBC % 0.0 /100WBC Nucleated RBCs # 0 K/uL INR Sodium 135 L (136-145) mmol/L Potassium 3.3 L (3.5-5.1) mmol/L Chloride 98 (98-107) mmol/L Carbon Dioxide 27.2 (21.0-32.0) mmol/L BUN 18 (7.0-18.0) mg/dL Creatinine 1.0 (0.6-1.0) mg/dL Est Cr Clr Drug Dosing 40.00 mL/min Estimated GFR (MDRD) 52.7 ml/min Glucose 115 H (74-106) mg/dL Calcium 8.3 L (8.5-10.1) mg/dL Total Bilirubin 1.3 H (0.2-1.0) mg/dL AST 25 (15-37) IU/L ALT 14 (14-63) IU/L Alkaline Phosphatase 128 H (46-116) U/L Creatine Kinase 62 (26-308) U/L Troponin I < 0.050 (0.000-0.056) ng/mL Total Protein 6.7 (6.4-8.2) g/dL Albumin 2.4 L (3.4-5.0) g/dL Globulin 4.3 H (2.6-4.0) g/dL Albumin/Globulin Ratio 0.6 L (0.9-1.6) Free T4 1.55 H (0.76-1.46) ng/dL TSH 3rd Generation 5.93 H (0.36-3.74) uIU/mL SARS-CoV-2 RNA (JUAN) (NEGATIVE) 07/10/20 07/10/20 Range/Units 19:07 19:10 WBC (4.0-11.0) K/uL RBC (4.30-5.90) M/uL Hgb (12.0-16.0) g/dL Hct (36.0-46.0) % MCV (80.0-98.0) fL MCH (27.0-32.0) pg MCHC (31.0-37.0) g/dL RDW Std Deviation (28.0-62.0) fl RDW Coeff of [place] (11.0-15.0) % Plt Count (150-400) K/uL MPV (7.40-12.00) fL Neut % (Auto) (48.0-80.0) % Lymph % (Auto) (16.0-40.0) % [place] % (Auto) (0.0-15.0) % Eos % (Auto) (0.0-7.0) % Baso % (Auto) (0.0-1.5) % Neut # (Auto) (1.4-5.7) K/uL Lymph # (Auto) (0.6-2.4) K/uL [place] # (Auto) (0.0-0.8) K/uL Eos # (Auto) (0.0-0.7) K/uL Baso # (Auto) (0.0-0.1) K/uL Nucleated RBC % /100WBC Nucleated RBCs # K/uL INR 1.28 Sodium (136-145) mmol/L Potassium (3.5-5.1) mmol/L Chloride (98-107) mmol/L Carbon Dioxide (21.0-32.0) mmol/L BUN (7.0-18.0) mg/dL Creatinine (0.6-1.0) mg/dL Est Cr Clr Drug Dosing mL/min Estimated GFR (MDRD) ml/min Glucose (74-106) mg/dL Calcium (8.5-10.1) mg/dL Total Bilirubin (0.2-1.0) mg/dL AST (15-37) IU/L ALT (14-63) IU/L Alkaline Phosphatase (46-116) U/L Creatine Kinase (26-308) U/L Troponin I (0.000-0.056) ng/mL Total Protein (6.4-8.2) g/dL Albumin (3.4-5.0) g/dL Globulin (2.6-4.0) g/dL Albumin/Globulin Ratio (0.9-1.6) Free T4 (0.76-1.46) ng/dL TSH 3rd Generation (0.36-3.74) uIU/mL SARS-CoV-2 RNA (JUAN) NEGATIVE (NEGATIVE) Result Diagrams: 07/10/20 19:07 07/10/20 19:07 Sepsis Event Note - Evaluation Sepsis Screening Result: No Definite Risk - Focused Exam Vital Signs: Vital Signs Temp Pulse Resp BP Pulse Ox 07/10/20 21:43 36.2 C 102 H 20 101/61 92 L 07/10/20 21:25 113 H 20 127/70 92 L 07/10/20 21:12 36.2 C 100 18 123/76 94 L 07/10/20 20:37 121 H 16 127/60 92 L 07/10/20 20:05 112 H 124/72 91 L 07/10/20 16:23 36.8 C 76 18 111/51 L 94 L - Problem List (1) Inability to walk SNOMED Code(s): 082410786 ICD Code: R26.2 - DIFFICULTY IN WALKING, NOT ELSEWHERE CLASSIFIED Status: Acute Current Visit: Yes (2) Joint pain SNOMED Code(s): 11570120 ICD Code: M25.50 - PAIN IN UNSPECIFIED JOINT Status: Acute Current Visit: Yes (3) Hypothyroidism SNOMED Code(s): 84515803 ICD Code: E03.9 - HYPOTHYROIDISM, UNSPECIFIED Status: Chronic Current Visit: Yes Qualifiers: Hypothyroidism type: unspecified Qualified Code(s): E03.9 - Hypothyroidism, unspecified (4) Right knee pain SNOMED Code(s): 52105333 ICD Code: M25.561 - PAIN IN RIGHT KNEE Status: Acute Current Visit: No (5) Atrial fibrillation SNOMED Code(s): 67923285 ICD Code: I48.91 - UNSPECIFIED ATRIAL FIBRILLATION Status: Chronic Current Visit: No Qualifiers: Atrial fibrillation type: chronic (6) Congestive heart failure SNOMED Code(s): 83096692 ICD Code: I50.9 - HEART FAILURE, UNSPECIFIED Status: Chronic Current Visit: No (7) Hypertension SNOMED Code(s): 50414329 ICD Code: I10 - ESSENTIAL (PRIMARY) HYPERTENSION Status: Chronic Current Visit: No Qualifiers: Hypertension type: essential hypertension Qualified Code(s): I10 - Essential (primary) hypertension Problem List Initiated/Reviewed/Updated: Yes Orders Last 24hrs: Active Orders 24 hr Category Date Time Status Admission Status [Patient Status] [ADT] Stat ADT 07/10/20 20:30 Active Ambulate [RC] ASDIRECTED Care 07/10/20 21:09 Active Antiembolic Devices [RC] PER UNIT ROUTINE Care 07/10/20 21:10 Active Oxygen Therapy [RC] PRN Care 07/10/20 21:09 Active Pulse Oximetry [RC] PRN Care 07/10/20 21:09 Active RT Aerosol Therapy [RC] ASDIRECTED Care 07/10/20 21:10 Active VTE/DVT Education [RC] PER UNIT ROUTINE Care 07/10/20 21:09 Active Vital Signs [RC] Q4H Care 07/10/20 21:09 Active Heart Healthy Diet [DIET] Diet 07/11/20 Breakfast Active Acetaminophen/oxyCODONE [Percocet 325-5 MG] Med 07/10/20 21:11 Active 1 tab PO Q6H PRN Albuterol/Ipratropium [DuoNeb 3.0-0.5 MG/3 ML] Med 07/10/20 21:09 Active 3 ml NEB Q4HRRT PRN Enoxaparin [Lovenox] Med 07/10/20 21:15 Active 30 mg SUBCUT Q24H Levothyroxine Med 07/11/20 09:00 Active 50 mcg PO DAILY Metoprolol Succinate [Toprol XL] Med 07/11/20 09:00 Active 200 mg PO DAILY Omeprazole [Omeprazole] Med 07/11/20 09:00 Active 40 mg PO DAILY Sodium Chloride 0.9% [Saline Flush] Med 07/10/20 18:55 Active 10 ml FLUSH ASDIRECTED PRN Sodium Chloride 0.9% [Saline Flush] Med 07/10/20 18:55 Active 2.5 ml FLUSH ASDIRECTED PRN Saline Lock Insert [OM.PC] Stat Oth 07/10/20 18:55 Ordered Sequential Compression Device [OM.PC] Per Unit Routine Ot 07/10/20 21:09 Ordered Medication Orders Albuterol/Ipratropium (Duoneb 3.0-0.5 Mg/3 Ml) 3 ml NEB Q4HRRT PRN PRN Reason: Shortness Of Breath/wheezing Enoxaparin Sodium (Lovenox) 30 mg SUBCUT Q24H MORRO Levothyroxine Sodium (Levothyroxine) 50 mcg PO DAILY MORRO Metoprolol Succinate (Toprol Xl) 200 mg PO DAILY MORRO Non-Formulary Medication (Omeprazole [Omeprazole]) 40 mg PO DAILY MORRO Oxycodone/Acetaminophen (Percocet 325-5 Mg) 1 tab PO Q6H PRN PRN Reason: Pain Sodium Chloride (Saline Flush) 10 ml FLUSH ASDIRECTED PRN PRN Reason: Keep Vein Open Last Admin: 07/10/20 20:39 Dose: 10 ml Documented by: DANIEL Sodium Chloride (Saline Flush) 2.5 ml FLUSH ASDIRECTED PRN PRN Reason: Keep Vein Open Last Admin: 07/10/20 20:39 Dose: 2.5 ml Documented by: [id number] Assessment/Plan Comment:: 84 y/o F admitted for multiple joint pain, hypokalemia admit to observation, Hold lasix Resume home meds as appropriate DuoNebs as needed Monitor and replete electrolytes as needed Possible PT eval in AM
[2020-07-10] MEDS: Apixaban 2.5 MG Tab PO SCH (23:23)
[2020-07-11] MEDS: Acetaminophen/oxyCODONE 325-5 MG Tab PO PRN ×2 (04:08→21:08)
[2020-07-11 06:11] LABS: CARBON DIOXIDE,CO2 25.6 mmol/L (21.0-32.0); POTASSIUM,K 3.8 mmol/L (3.5-5.1)
--- NOTE | 2020-07-11 08:13 | PCM.PN ---
- General Info Date of Service: 07/11/20 Admission Dx/Problem (Free Text): Admission Diagnosis/Problem Admission Diagnosis/Problem Joint pain Subjective Update: Reports she is feeling well this morning. Still having concerns about getting up. Denies any chest pain or shortness of breath. Reports urgency and frequency with urination. Functional Status: Reports: Pain Controlled, Tolerating Diet, Ambulating - Review of Systems General: Reports: Weakness ( generalized). Denies: Fatigue HEENT: Reports: No Symptoms (, Patient) Pulmonary: Reports: No Symptoms. Denies: Shortness of Breath Cardiovascular: Reports: No Symptoms. Denies: Chest Pain Gastrointestinal: Reports: No Symptoms. Denies: Abdominal Pain, Nausea, Vomiting Genitourinary: Reports: No Symptoms. Denies: Dysuria, Frequency, Burning Musculoskeletal: Reports: No Symptoms Skin: Reports: No Symptoms Neurological: Reports: No Symptoms Psychiatric: Reports: No Symptoms - Patient Data Vitals - Most Recent: Last Vital Signs Temp 97.1 F 07/11/20 03:55 Pulse 95 07/11/20 03:55 Resp 20 07/11/20 03:55 BP 124/71 07/11/20 03:55 Pulse Ox 94 L 07/11/20 03:55 Weight - Most Recent: 95.799 kg I&O - Last 24 Hours: Intake & Output 07/10/20 07/11/20 07/11/20 22:59 06:59 14:59 Intake Total 590 Output Total 150 Balance 440 Lab Results Last 24 Hours: Laboratory Results - last 24 hr 07/10/20 07/10/20 07/10/20 Range/Units 19:07 19:07 19:07 WBC 10.93 (4.0-11.0) K/uL RBC 3.88 L (4.30-5.90) M/uL Hgb 12.6 (12.0-16.0) g/dL Hct 37.5 (36.0-46.0) % MCV 96.6 (80.0-98.0) fL MCH 32.5 H (27.0-32.0) pg MCHC 33.6 (31.0-37.0) g/dL RDW Std Deviation 48.1 (28.0-62.0) fl RDW Coeff of Eunice 14 (11.0-15.0) % Plt Count 374 (150-400) K/uL MPV 8.90 (7.40-12.00) fL Neut % (Auto) 65.7 (48.0-80.0) % Lymph % (Auto) 19.5 (16.0-40.0) % [place] % (Auto) 14.2 (0.0-15.0) % Eos % (Auto) 0.4 (0.0-7.0) % Baso % (Auto) 0.2 (0.0-1.5) % Neut # (Auto) 7.2 H (1.4-5.7) K/uL Lymph # (Auto) 2.1 (0.6-2.4) K/uL [place] # (Auto) 1.6 H (0.0-0.8) K/uL Eos # (Auto) 0.0 (0.0-0.7) K/uL Baso # (Auto) 0.0 (0.0-0.1) K/uL Nucleated RBC % 0.0 /100WBC Nucleated RBCs # 0 K/uL INR Sodium 135 L (136-145) mmol/L Potassium 3.3 L (3.5-5.1) mmol/L Chloride 98 (98-107) mmol/L Carbon Dioxide 27.2 (21.0-32.0) mmol/L BUN 18 (7.0-18.0) mg/dL Creatinine 1.0 (0.6-1.0) mg/dL Est Cr Clr Drug Dosing 40.00 mL/min Estimated GFR (MDRD) 52.7 ml/min Glucose 115 H (74-106) mg/dL Calcium 8.3 L (8.5-10.1) mg/dL Phosphorus (2.6-4.7) mg/dL Magnesium (1.8-2.4) mg/dL Total Bilirubin 1.3 H (0.2-1.0) mg/dL AST 25 (15-37) IU/L ALT 14 (14-63) IU/L Alkaline Phosphatase 128 H (46-116) U/L Creatine Kinase 62 (26-308) U/L Troponin I < 0.050 (0.000-0.056) ng/mL Total Protein 6.7 (6.4-8.2) g/dL Albumin 2.4 L (3.4-5.0) g/dL Globulin 4.3 H (2.6-4.0) g/dL Albumin/Globulin Ratio 0.6 L (0.9-1.6) Free T4 1.55 H (0.76-1.46) ng/dL TSH 3rd Generation 5.93 H (0.36-3.74) uIU/mL Urine Color Urine Appearance Urine pH (5.0-8.0) Ur Specific [place]iken (1.001-1.035) Urine Protein (NEGATIVE) mg/dL Urine Glucose (UA) (NEGATIVE) mg/dL Urine Ketones (NEGATIVE) mg/dL Urine Occult Blood (NEGATIVE) Urine Nitrite (NEGATIVE) Urine Bilirubin (NEGATIVE) Urine Ictotest Urine Urobilinogen (<2.0) EU/dL Ur Leukocyte Esterase (NEGATIVE) Urine RBC (0-2/HPF) Urine WBC (0-5/HPF) Ur Epithelial Cells (NONE-FEW) Urine Bacteria (NEGATIVE) Urine Mucus (NONE-MOD) SARS-CoV-2 RNA (JUAN) (NEGATIVE) 07/10/20 07/10/20 07/11/20 Range/Units 19:07 19:10 05:25 WBC 8.76 (4.0-11.0) K/uL RBC 3.82 L (4.30-5.90) M/uL Hgb 12.0 (12.0-16.0) g/dL Hct 36.9 (36.0-46.0) % MCV 96.6 (80.0-98.0) fL MCH 31.4 (27.0-32.0) pg MCHC 32.5 (31.0-37.0) g/dL RDW Std Deviation 48.7 (28.0-62.0) fl RDW Coeff of Eunice 14 (11.0-15.0) % Plt Count 411 H (150-400) K/uL MPV 9.10 (7.40-12.00) fL Neut % (Auto) 60.2 (48.0-80.0) % Lymph % (Auto) 25.9 (16.0-40.0) % [place] % (Auto) 11.4 (0.0-15.0) % Eos % (Auto) 2.2 (0.0-7.0) % Baso % (Auto) 0.3 (0.0-1.5) % Neut # (Auto) 5.3 (1.4-5.7) K/uL Lymph # (Auto) 2.3 (0.6-2.4) K/uL [place] # (Auto) 1.0 H (0.0-0.8) K/uL Eos # (Auto) 0.2 (0.0-0.7) K/uL Baso # (Auto) 0.0 (0.0-0.1) K/uL Nucleated RBC % 0.0 /100WBC Nucleated RBCs # 0 K/uL INR 1.28 Sodium (136-145) mmol/L Potassium (3.5-5.1) mmol/L Chloride (98-107) mmol/L Carbon Dioxide (21.0-32.0) mmol/L BUN (7.0-18.0) mg/dL Creatinine (0.6-1.0) mg/dL Est Cr Clr Drug Dosing mL/min Estimated GFR (MDRD) ml/min Glucose (74-106) mg/dL Calcium (8.5-10.1) mg/dL Phosphorus (2.6-4.7) mg/dL Magnesium (1.8-2.4) mg/dL Total Bilirubin (0.2-1.0) mg/dL AST (15-37) IU/L ALT (14-63) IU/L Alkaline Phosphatase (46-116) U/L Creatine Kinase (26-308) U/L Troponin I (0.000-0.056) ng/mL Total Protein (6.4-8.2) g/dL Albumin (3.4-5.0) g/dL Globulin (2.6-4.0) g/dL Albumin/Globulin Ratio (0.9-1.6) Free T4 (0.76-1.46) ng/dL TSH 3rd Generation (0.36-3.74) uIU/mL Urine Color Urine Appearance Urine pH (5.0-8.0) Ur Specific [place] (1.001-1.035) Urine Protein (NEGATIVE) mg/dL Urine Glucose (UA) (NEGATIVE) mg/dL Urine Ketones (NEGATIVE) mg/dL Urine Occult Blood (NEGATIVE) Urine Nitrite (NEGATIVE) Urine Bilirubin (NEGATIVE) Urine Ictotest Urine Urobilinogen (<2.0) EU/dL Ur Leukocyte Esterase (NEGATIVE) Urine RBC (0-2/HPF) Urine WBC (0-5/HPF) Ur Epithelial Cells (NONE-FEW) Urine Bacteria (NEGATIVE) Urine Mucus (NONE-MOD) SARS-CoV-2 RNA (JUAN) NEGATIVE (NEGATIVE) 07/11/20 07/11/20 Range/Units 05:25 05:50 WBC (4.0-11.0) K/uL RBC (4.30-5.90) M/uL Hgb (12.0-16.0) g/dL Hct (36.0-46.0) % MCV (80.0-98.0) fL MCH (27.0-32.0) pg MCHC (31.0-37.0) g/dL RDW Std Deviation (28.0-62.0) fl RDW Coeff of Eunice (11.0-15.0) % Plt Count (150-400) K/uL MPV (7.40-12.00) fL Neut % (Auto) (48.0-80.0) % Lymph % (Auto) (16.0-40.0) % [place] % (Auto) (0.0-15.0) % Eos % (Auto) (0.0-7.0) % Baso % (Auto) (0.0-1.5) % Neut # (Auto) (1.4-5.7) K/uL Lymph # (Auto) (0.6-2.4) K/uL [place] # (Auto) (0.0-0.8) K/uL Eos # (Auto) (0.0-0.7) K/uL Baso # (Auto) (0.0-0.1) K/uL Nucleated RBC % /100WBC Nucleated RBCs # K/uL INR Sodium 134 L (136-145) mmol/L Potassium 3.8 (3.5-5.1) mmol/L Chloride 98 (98-107) mmol/L Carbon Dioxide 25.6 (21.0-32.0) mmol/L BUN 22 H (7.0-18.0) mg/dL Creatinine 0.9 (0.6-1.0) mg/dL Est Cr Clr Drug Dosing 44.44 mL/min Estimated GFR (MDRD) 59.5 ml/min Glucose 102 (74-106) mg/dL Calcium 8.2 L (8.5-10.1) mg/dL Phosphorus 3.8 (2.6-4.7) mg/dL Magnesium 1.9 (1.8-2.4) mg/dL Total Bilirubin (0.2-1.0) mg/dL AST (15-37) IU/L ALT (14-63) IU/L Alkaline Phosphatase (46-116) U/L Creatine Kinase (26-308) U/L Troponin I (0.000-0.056) ng/mL Total Protein (6.4-8.2) g/dL Albumin (3.4-5.0) g/dL Globulin (2.6-4.0) g/dL Albumin/Globulin Ratio (0.9-1.6) Free T4 (0.76-1.46) ng/dL TSH 3rd Generation (0.36-3.74) uIU/mL Urine Color ORANGE Urine Appearance SLT CLOUDY Urine pH 5.5 (5.0-8.0) Ur Specific [place] >= 1.030 (1.001-1.035) Urine Protein TRACE H (NEGATIVE) mg/dL Urine Glucose (UA) NEGATIVE (NEGATIVE) mg/dL Urine Ketones NEGATIVE (NEGATIVE) mg/dL Urine Occult Blood NEGATIVE (NEGATIVE) Urine Nitrite POSITIVE H (NEGATIVE) Urine Bilirubin MODERATE H (NEGATIVE) Urine Ictotest NEGATIVE Urine Urobilinogen 1.0 (<2.0) EU/dL Ur Leukocyte Esterase NEGATIVE (NEGATIVE) Urine RBC 0-2 (0-2/HPF) Urine WBC 5-10 (0-5/HPF) Ur Epithelial Cells MODERATE (NONE-FEW) Urine Bacteria 1+ H (NEGATIVE) Urine Mucus LIGHT (NONE-MOD) SARS-CoV-2 RNA (JUAN) (NEGATIVE) Med Orders - Current: Current Medications Albuterol/Ipratropium (Duoneb 3.0-0.5 Mg/3 Ml) 3 ml NEB Q4HRRT PRN PRN Reason: Shortness Of Breath/wheezing Apixaban (Eliquis) 2.5 mg PO DAILY [facility] Last Admin: 07/10/20 23:23 Dose: 2.5 mg Documented by: Furosemide (Lasix) 40 mg PO DAILY [facility] Ceftriaxone Sodium/Dextrose 1 (gm/ Premix) 50 mls @ 100 mls/hr IV Q24H [facility] Levothyroxine Sodium (Levothyroxine) 50 mcg PO DAILY [facility] Lisinopril (Prinivil) 5 mg PO DAILY [facility] Metoprolol Succinate (Toprol Xl) 200 mg PO DAILY [facility] Non-Formulary Medication (Omeprazole [Omeprazole]) 40 mg PO DAILY [facility] Oxycodone/Acetaminophen (Percocet 325-5 Mg) 1 tab PO Q6H PRN PRN Reason: Pain Last Admin: 07/11/20 04:08 Dose: 1 tab Documented by: Sodium Chloride (Saline Flush) 10 ml FLUSH ASDIRECTED PRN PRN Reason: Keep Vein Open Last Admin: 07/10/20 20:39 Dose: 10 ml Documented by: Sodium Chloride (Saline Flush) 2.5 ml FLUSH ASDIRECTED PRN PRN Reason: Keep Vein Open Last Admin: 07/10/20 20:39 Dose: 2.5 ml Documented by: Discontinued Medications Acetaminophen (Tylenol Extra Strength) 1,000 mg PO ONETIME ONE Stop: 07/10/20 17:11 Last Admin: 07/10/20 17:51 Dose: 1,000 mg Documented by: Enoxaparin Sodium (Lovenox) 30 mg SUBCUT Q24H [facility] Last Admin: 07/10/20 23:10 Dose: 30 mg Documented by: Levothyroxine Sodium (Synthroid) 50 mcg PO ONETIME ONE Stop: 07/10/20 22:58 Last Admin: 07/10/20 23:11 Dose: 50 mcg Documented by: Lidocaine (Lidoderm 5%) 700 mg TOP ONETIME ONE Stop: 07/10/20 17:11 Last Admin: 07/10/20 17:58 Dose: 700 mg Documented by: Lidocaine (Lidoderm 5%) 700 mg TOP ONETIME ONE Stop: 07/10/20 17:11 Last Admin: 07/10/20 17:58 Dose: 700 mg Documented by: Metoprolol Succinate (Toprol Xl) 200 mg PO ONETIME ONE Stop: 07/10/20 22:55 Last Admin: 07/10/20 23:10 Dose: 200 mg Documented by: Oxycodone HCl (Oxycodone) 10 mg PO ONETIME ONE Stop: 07/10/20 17:11 Last Admin: 07/10/20 17:54 Dose: 10 mg Documented by: Potassium Chloride (Potassium Chloride) 40 meq PO ONETIME ONE Stop: 07/10/20 21:14 Last Admin: 07/10/20 23:10 Dose: 40 meq Documented by: - Exam General: Alert, Oriented, Cooperative, No Acute Distress Lungs: Clear to Auscultation, Normal Respiratory Effort Cardiovascular: Regular Rate, Regular Rhythm GI/Abdominal Exam: Normal Bowel Sounds, Soft, Non-Tender Extremities: Normal Inspection, Normal Range of Motion, Non-Tender, Pedal Edema (+1 pitting edema bilateral legs) Wound/Incisions: Other (Bilateral venous stasis skin changes. No open areas noted.) Neurological: No New Focal Deficit Psy/Mental Status: Alert, Normal Affect, Normal Mood Sepsis Event Note - Evaluation Sepsis Screening Result: No Definite Risk - Focused Exam Vital Signs: Vital Signs Temp Pulse Pulse Resp BP BP Pulse Ox 07/11/20 03:55 97.1 F 95 20 124/71 94 L 07/11/20 01:08 98 F 107 H 20 107/65 93 L 07/10/20 23:10 104 H 123/76 07/10/20 21:43 97.2 F 102 H 20 101/61 92 L 07/10/20 21:25 113 H 20 127/70 92 L 07/10/20 21:12 97.2 F 100 18 123/76 94 L 07/10/20 20:37 121 H 16 127/60 92 L - Problem List & Annotations (1) Generalized weakness SNOMED Code(s): 69964093 Code(s): R53.1 - WEAKNESS Status: Acute Current Visit: Yes (2) Joint pain SNOMED Code(s): 01487729 Code(s): M25.50 - PAIN IN UNSPECIFIED JOINT Status: Acute Current Visit: Yes (3) Anticoagulation adequate SNOMED Code(s): 107569011, 917575491 Code(s): Z79.01 - PENITENTIARY (CURRENT) USE OF ANTICOAGULANTS Status: Acute Current Visit: Yes (4) UTI (urinary tract infection) SNOMED Code(s): 05004306 Code(s): N39.0 - URINARY TRACT INFECTION, SITE NOT SPECIFIED Status: Acute Current Visit: Yes (5) Hypothyroidism SNOMED Code(s): 05673676 Code(s): E03.9 - HYPOTHYROIDISM, UNSPECIFIED Status: Chronic Current Visit: Yes Qualifiers: Hypothyroidism type: unspecified Qualified Code(s): E03.9 - Hypothyroidism, unspecified (6) Atrial fibrillation SNOMED Code(s): 70534484 Code(s): I48.91 - UNSPECIFIED ATRIAL FIBRILLATION Status: Chronic Current Visit: No Qualifiers: Atrial fibrillation type: chronic (7) Congestive heart failure SNOMED Code(s): 78630872 Code(s): I50.9 - HEART FAILURE, UNSPECIFIED Status: Chronic Current Visit: No (8) Hypertension SNOMED Code(s): 69818948 Code(s): I10 - ESSENTIAL (PRIMARY) HYPERTENSION Status: Chronic Current Visit: No Qualifiers: Hypertension type: essential hypertension Qualified Code(s): I10 - Essential (primary) hypertension - Problem List Review Problem List Initiated/Reviewed/Updated: Yes - My Orders Last 24 Hours: My Active Orders 07/11/20 05:50 CULTURE URINE [RM] Routine 07/11/20 08:11 Intake and Output [RC] QSHIFT PT Evaluation and Treatment [CONS] Routine 07/11/20 08:15 cefTRIAXone [Rocephin in Dextrose,Iso-Osm 1 GM/50 ML] 1 gm Premix Bag 1 bag IV Q24H - Plan Plan:: 84 y/o F admitted for multiple joint pain, hypokalemia 1. Inability to ambulate/multiple joint pain -Consult PT for evaluation treatment -Consult home health for home care services -Feeling better this morning but still nervous about ambulating. And getting out of the chair -Now stating she is not going to go stay with her daughter but will stay here in town and is requesting home care services. -Consult case management 2. Hypokalemia -Improved this morning - Magnesium stable -Monitor in a.m. especially with Lasix use. 3. UTI -UC obtained -Started on Rocephin 1 g IV 4. A. fib/anticoagulation/heart failure -Stable -Continue Lasix Eliquis, lisinopril, metoprolol -Daily weights -Strict I's and O's -Monitor on telemetry VTE prophylaxis: Eliquis CODE STATUS: DNI does request chest compressions but no intubation or mechanical ventilation Dispo: 1 to 2 days pending improvement
[2020-07-11] MEDS: cefTRIAXone 1 GM in Premix Bag 1 BAG IV SCH (08:39)
[2020-07-11] MEDS: Lisinopril 10 MG Tab PO SCH (08:41)
[2020-07-11] MEDS: Furosemide 40 MG Tab PO SCH (08:41)
[2020-07-11] MEDS: Levothyroxine 25 MCG Tab PO SCH (08:41)
[2020-07-11] MEDS: Apixaban 2.5 MG Tab PO SCH (08:41)
[2020-07-11] MEDS: Metoprolol Succinate 100 MG Tab.ER PO SCH (08:42)
[2020-07-11] MEDS: Non-Formulary Medication 1 Each (Omeprazole [Omeprazole] 40 MG) PO SCH (08:44)
[2020-07-12] MEDS ORDERED: Ketorolac 30 MG/ML SDV IVPUSH ONE (00:47)
[2020-07-12] MEDS: Acetaminophen/oxyCODONE 325-5 MG Tab PO PRN (03:06)
[2020-07-12 05:55] LABS: CARBON DIOXIDE,CO2 25.9 mmol/L (21.0-32.0); POTASSIUM,K 3.5 mmol/L (3.5-5.1)
[2020-07-12] MEDS: Lisinopril 10 MG Tab PO SCH (09:10)
[2020-07-12] MEDS: Furosemide 40 MG Tab PO SCH (09:12)
[2020-07-12] MEDS: Levothyroxine 25 MCG Tab PO SCH (09:12)
[2020-07-12] MEDS: Apixaban 2.5 MG Tab PO SCH (09:12)
[2020-07-12] MEDS: Metoprolol Succinate 100 MG Tab.ER PO SCH (09:13)
[2020-07-12] MEDS: cefTRIAXone 1 GM in Premix Bag 1 BAG IV SCH (09:14)
[2020-07-12] MEDS: Non-Formulary Medication 1 Each (Omeprazole [Omeprazole] 40 MG) PO SCH (09:15)
[2020-07-12] MEDS ORDERED: Furosemide 20 MG/2 ML VIAL IVPUSH ONE (10:52)
[2020-07-12 11:13] VITALS: BP 92/52; PULSE 89
--- NOTE | 2020-07-12 12:12 | PCM.DCSUM1 ---
Discharge Summary - Hospital Course Brief History: Patient is an 84-year-old female from home with a past medical history of atrial fibrillation on rivaroxaban, osteoarthritis of the bilateral knees and the left shoulder, status post right TKA, chronic left hip pain, chronic low back pain, lumbar spinal stenosis, chronic bilateral severe glenohumeral arthritis. hypothyroidism, hypertension, congestive heart failure presenting with complaints of joint pain, severe enough to limit her ADLS, she had to call police when she was unable to get off the toilet. Patient is being followed up by her orthopedic surgeon for chronic left knee pain, Undergoing injections of hyaluronic acid to the left knee by orthopedic surgery clinic. 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 She is also getting subacromial injections. She is not able to take NSAIDs due to her medical history and prior history of peptic ulcer disease. It looks like she is currently on diclofenac transdermal gel along with Ultram and Tylenol. These are prescribed by her primary doctor. Today she presents to the emergency department complaining of pain to multiple joints, no h/o fall, trauma, She also complains of slightly worsening bilateral lower extremity edema to the legs, states she hasn't been eating much and hasnt taken her meds for last few days. Denies any recent fever, denies joint swelling or redness or edema. She is intermittently taking her prescribed home pain medications without much relief. Today she was having so much pain that she was not able to get up and walk so she called police to come help her off the toilet. No other complaints at this point. Denies any numbness or weakness to any of her extremities. X-rays of several joints ruled out acute fracture, Patient was slightly hypokalemic. Patient was admitted for observation. States her neighbors help her out sometimes and she is probably going to live with her daughter in [facility]. Diagnosis: Stroke: No - Discharge Data Discharge Date: 07/12/20 Discharge Disposition: Home, W Home Health Agency 06 Condition: Good - Referral to Home Health Date of Face to Face Encounter: 07/12/20 Reason for Homebound Status: Gloria will be discharged home today. She is homebound needing assistance from caregiver along with assistive device, walker, to leave the house safely due to unsteady gait and chronic pain related to arthritis. Primary Care Physician: Zach Mendieta MD Skilled Need: Gloria is in need of residential care to help monitor weight and monitor medication administration due to CHF and inability to keep track of medications. She needs monitoring due to her CHF for symptoms related to this including weight gain and peripheral edema. She is in need of physical therapy to evaluate and treat due to chronic pain and unsteady gait related to her arthritis. She is also in need of OT to evaluate and treat to monitor for home safety as well as ability to complete ADLs effectively. - Discharge Diagnosis/Problem(s) (1) Generalized weakness SNOMED Code(s): 96235584 ICD Code: R53.1 - WEAKNESS Status: Acute Current Visit: Yes (2) Joint pain SNOMED Code(s): 32027554 ICD Code: M25.50 - PAIN IN UNSPECIFIED JOINT Status: Acute Current Visit: Yes (3) Anticoagulation adequate SNOMED Code(s): 722193607, 343976557 ICD Code: Z79.01 - ROLLS BAKER (CURRENT) USE OF ANTICOAGULANTS Status: Acute Current Visit: Yes (4) UTI (urinary tract infection) SNOMED Code(s): 19153220 ICD Code: N39.0 - URINARY TRACT INFECTION, SITE NOT SPECIFIED Status: Acute Current Visit: Yes (5) Hypothyroidism SNOMED Code(s): 34490861 ICD Code: E03.9 - HYPOTHYROIDISM, UNSPECIFIED Status: Chronic Current Visit: Yes Qualifiers: Hypothyroidism type: unspecified Qualified Code(s): E03.9 - Hypothyroidism, unspecified (6) Atrial fibrillation SNOMED Code(s): 21011571 ICD Code: I48.91 - UNSPECIFIED ATRIAL FIBRILLATION Status: Chronic Current Visit: No Qualifiers: Atrial fibrillation type: chronic (7) Congestive heart failure SNOMED Code(s): 85315830 ICD Code: I50.9 - HEART FAILURE, UNSPECIFIED Status: Chronic Current Visit: No (8) Hypertension SNOMED Code(s): 92861045 ICD Code: I10 - ESSENTIAL (PRIMARY) HYPERTENSION Status: Chronic Current Visit: No Qualifiers: Hypertension type: essential hypertension Qualified Code(s): I10 - Essential (primary) hypertension - Patient Summary/Data Consults: Consultations 07/11/20 08:11 PT Evaluation and Treatment [CONS] Routine 07/11/20 08:59 Consult to Home Health [CONS] Routine Hospital Course: Admitting diagnoses Joint pain difficulty with ambulation UTI Discharge diagnoses Chronic arthritic joint pain UTI Gloria was admitted secondary to inability to get herself off the toilet from significant multiple joint pain which is chronic in nature. She reports that she has been having more issues recently with ambulation and getting up out of the chair due to her chronic pain. She also feels that her legs continue to swell. She she reported she had stopped all her medications including Lasix and spironolactone a few days prior to seeking medical evaluation. She was encouraged she needs to continue taking her home medications due to her heart failure and monitoring her weight closely. During her stay here she was found to have UTI started on Rocephin. UC still pending on discharge. Will send home with Keflex for 5 more days, will let her know if UC returns and antibiotic changes are needed. She is to continue home medications as previously prescribed per her physician. She will have a slight increase in oxycodone for the next few days to 10 mg every 6-8 hours which she was educated on not taking it on a scheduled basis and trying to stretch out the need to use this medication. She was counseled that this may make her drowsy which she verbalized understanding and monitored closely at home when she takes this anyways. She is going to be discharged home today with home health. They will be needed to help monitor CHF symptoms along with her chronic pain. PT OT would be beneficial to evaluate and treat to help with ADLs along with pain and ambulation and strengthening. She was counseled on monitoring her weight daily for any significant changes in weight. She may need to increase Lasix dosing every couple days if this is noted. She is to monitor her sodium intake as well as limiting the amount of fluid she drinks to approximately 2 L daily. She is to return to the ER or primary care clinic if concerns should arrive sooner than her follow-up appointment. - Patient Instructions Diet: Heart Healthy Diet, Low Sodium Fluid Restriction: 2000 mL Activity: As Tolerated, Rest and Relax Today Driving: Do Not Drive Showering/Bathing: May Shower Notify Provider of: Fever, Increased Pain, Swelling and Redness, Drainage, Nausea and/or Vomiting Other/Special Instructions: Monitor weight daily and keep log. If you notice weight has increased by 3 to 5 pounds in 2 to 3 days please notify primary care doctor. Try wearing compression stockings to lower legs to reduce swelling. Keep legs elevated as much as possible during the day. - Discharge Plan *PRESCRIPTION DRUG MONITORING PROGRAM REVIEWED*: Not Applicable *COPY OF PRESCRIPTION DRUG MONITORING REPORT IN PATIENT [place]: Not Applicable Prescriptions/Med Rec: cephALEXin [Keflex] 500 mg PO Q12H #10 capsule oxyCODONE HCl/Acetaminophen [Oxycodone-Acetaminophen 5-325] 2 each PO Q6H PRN #30 tablet PRN Reason: Pain Home Medications: Home Meds Levothyroxine Sodium 50 mcg PO DAILY 10/03/16 [History] Metoprolol Succinate [Toprol XL] 200 mg PO DAILY #30 tab.er 10/05/16 [Rx] Furosemide [Lasix] 40 mg PO DAILY #30 tablet 12/26/16 [Rx] Lisinopril 5 mg PO DAILY 05/25/18 [History] Spironolactone [Aldactone] 12.5 mg PO DAILY 05/25/18 [History] Apixaban [Eliquis] 2.5 mg PO DAILY 07/10/20 [History] Pregabalin [Lyrica] 1 tab PO BID 07/10/20 [History] methocarbamoL [Methocarbamol] 1 tab PO BID PRN 07/10/20 [History] timoloL maleate [Timoptic 0.5% Ophth Soln] 1 drop EYERT BID 07/10/20 [History] cephALEXin [Keflex] 500 mg PO Q12H #10 capsule 07/12/20 [Rx] oxyCODONE HCl/Acetaminophen [Oxycodone-Acetaminophen 5-325] 2 each PO Q6H PRN #30 tablet 07/12/20 [Rx] Oxygen Therapy Mode: Room Air Patient Handouts: Heart Failure, Self Care, [id number], Weakness, [id number], Urinary Tract Infection, Adult, Irbu-cl-Fefm, Musculoskeletal Pain, Heat Therapy, How to Use Cold Therapy, Living With Heart Failure, Heart Failure Eating Plan, Joint Pain, [id number] Referrals: Zach Mendieta MD [Primary Care Provider] - 07/20/20 10:30 am - Discharge Summary/Plan Comment DC Time >30 min.: No - Patient Data Vitals - Most Recent: Last Vital Signs Temp 97 F 07/12/20 11:12 Pulse 89 07/12/20 11:12 Resp 18 11/17/20 11:12 BP 92/52 L 07/12/20 11:12 Pulse Ox 95 07/12/20 11:12 Weight - Most Recent: 92.805 kg I&O - Last 24 hours: Intake & Output 07/11/20 07/12/20 07/12/20 22:59 06:59 14:59 Intake Total 600 Output Total 900 Balance -300 Lab Results - Last 24 hrs: Laboratory Results - last 24 hr 07/12/20 07/12/20 Range/Units 05:25 05:25 WBC 8.09 (4.0-11.0) K/uL RBC 3.53 L (4.30-5.90) M/uL Hgb 11.3 L (12.0-16.0) g/dL Hct 34.2 L (36.0-46.0) % MCV 96.9 (80.0-98.0) fL MCH 32.0 (27.0-32.0) pg MCHC 33.0 (31.0-37.0) g/dL RDW Std Deviation 48.5 (28.0-62.0) fl RDW Coeff of Eunice 14 (11.0-15.0) % Plt Count 386 (150-400) K/uL MPV 8.80 (7.40-12.00) fL Neut % (Auto) 54.4 (48.0-80.0) % Lymph % (Auto) 31.8 (16.0-40.0) % Cooper % (Auto) 7.8 (0.0-15.0) % Eos % (Auto) 5.6 (0.0-7.0) % Baso % (Auto) 0.4 (0.0-1.5) % Neut # (Auto) 4.4 (1.4-5.7) K/uL Lymph # (Auto) 2.6 H (0.6-2.4) K/uL Cooper # (Auto) 0.6 (0.0-0.8) K/uL Eos # (Auto) 0.5 (0.0-0.7) K/uL Baso # (Auto) 0.0 (0.0-0.1) K/uL Nucleated RBC % 0.0 /100WBC Nucleated RBCs # 0 K/uL Sodium 132 L (136-145) mmol/L Potassium 3.5 (3.5-5.1) mmol/L Chloride 98 (98-107) mmol/L Carbon Dioxide 25.9 (21.0-32.0) mmol/L BUN 26 H (7.0-18.0) mg/dL Creatinine 1.2 H (0.6-1.0) mg/dL Est Cr Clr Drug Dosing 33.33 mL/min Estimated GFR (MDRD) 42.7 ml/min Glucose 116 H (74-106) mg/dL Calcium 7.6 L (8.5-10.1) mg/dL Magnesium 1.7 L (1.8-2.4) mg/dL Med Orders - Current: Current Medications Albuterol/Ipratropium (Duoneb 3.0-0.5 Mg/3 Ml) 3 ml NEB Q4HRRT PRN PRN Reason: Shortness Of Breath/wheezing Apixaban (Eliquis) 2.5 mg PO DAILY [facility] Last Admin: 07/12/20 09:12 Dose: 2.5 mg Documented by: Furosemide (Lasix) 40 mg PO DAILY [facility] Last Admin: 07/12/20 09:12 Dose: 40 mg Documented by: Ceftriaxone Sodium/Dextrose 1 (gm/ Premix) 50 mls @ 100 mls/hr IV Q24H [facility] Last Admin: 07/12/20 09:14 Dose: 100 mls/hr Documented by: Levothyroxine Sodium (Levothyroxine) 50 mcg PO DAILY [facility] Last Admin: 07/12/20 09:12 Dose: 50 mcg Documented by: Lisinopril (Prinivil) 5 mg PO DAILY [facility] Last Admin: 07/12/20 09:10 Dose: 5 mg Documented by: Metoprolol Succinate (Toprol Xl) 200 mg PO DAILY [facility] Last Admin: 07/12/20 09:13 Dose: 200 mg Documented by: Non-Formulary Medication (Omeprazole [Omeprazole]) 40 mg PO DAILY [facility] Last Admin: 07/12/20 09:15 Dose: Not Given Documented by: Oxycodone/Acetaminophen (Percocet 325-5 Mg) 1 tab PO Q6H PRN PRN Reason: Pain Last Admin: 07/12/20 03:06 Dose: 1 tab Documented by: Sodium Chloride (Saline Flush) 10 ml FLUSH ASDIRECTED PRN PRN Reason: Keep Vein Open Last Admin: 07/10/20 20:39 Dose: 10 ml Documented by: Sodium Chloride (Saline Flush) 2.5 ml FLUSH ASDIRECTED PRN PRN Reason: Keep Vein Open Last Admin: 07/10/20 20:39 Dose: 2.5 ml Documented by: Discontinued Medications Acetaminophen (Tylenol Extra Strength) 1,000 mg PO ONETIME ONE Stop: 07/10/20 17:11 Last Admin: 07/10/20 17:51 Dose: 1,000 mg Documented by: Enoxaparin Sodium (Lovenox) 30 mg SUBCUT Q24H [facility] Last Admin: 07/10/20 23:10 Dose: 30 mg Documented by: Furosemide (Lasix) 20 mg IVPUSH ONETIME ONE Stop: 07/12/20 10:53 Last Admin: 07/12/20 11:20 Dose: 20 mg Documented by: Ketorolac Tromethamine (Toradol) 30 mg IVPUSH ONETIME ONE Stop: 07/12/20 00:48 Last Admin: 07/12/20 01:00 Dose: 30 mg Documented by: Levothyroxine Sodium (Synthroid) 50 mcg PO ONETIME ONE Stop: 07/10/20 22:58 Last Admin: 07/10/20 23:11 Dose: 50 mcg Documented by: Lidocaine (Lidoderm 5%) 700 mg TOP ONETIME ONE Stop: 07/10/20 17:11 Last Admin: 07/10/20 17:58 Dose: 700 mg Documented by: Lidocaine (Lidoderm 5%) 700 mg TOP ONETIME ONE Stop: 07/10/20 17:11 Last Admin: 07/10/20 17:58 Dose: 700 mg Documented by: Metoprolol Succinate (Toprol Xl) 200 mg PO ONETIME ONE Stop: 07/10/20 22:55 Last Admin: 07/10/20 23:10 Dose: 200 mg Documented by: Oxycodone HCl (Oxycodone) 10 mg PO ONETIME ONE Stop: 07/10/20 17:11 Last Admin: 07/10/20 17:54 Dose: 10 mg Documented by: Potassium Chloride (Potassium Chloride) 40 meq PO ONETIME ONE Stop: 07/10/20 21:14 Last Admin: 07/10/20 23:10 Dose: 40 meq Documented by:
== END 2020-07-12 14:05 | disposition home health service (06) ==
LOC: MW.ED 15:47 → MW.MS 20:30
PROVIDERS: ADMIT Student in an Organized Health Care Education/Training Program; ATTEND Student in an Organized Health Care Education/Training Program
DX: R26.2 Difficulty in walking, not elsewhere classified (principal); G89.29 Other chronic pain; M25.561 Pain in right knee; E87.6 Hypokalemia; I48.91 Unspecified atrial fibrillation; E03.9 Hypothyroidism, unspecified; I50.9 Heart failure, unspecified; E66.9 Obesity, unspecified; Z88.5 Allergy status to narcotic agent; Z91.048 Other nonmedicinal substance allergy status; Z79.890 Hormone replacement therapy; Z79.899 Other long term (current) drug therapy; Z98.890 Other specified postprocedural states; Z79.01 Long term (current) use of anticoagulants; Z20.828 Contact with and (suspected) exposure to other viral communicable diseases; Z68.32 Body mass index [BMI] 32.0-32.9, adult
CPT/HCPCS: 36415; 73070; 73130; 73562; 73610; 80048; 80053; 81001; 82550; 83735; 84100; 84439; 84443; 84484; 85025; 85610; 87086; 96365; 96366; 96372; 96375; 97110; 97162; 97530; 99285; A9270; G0378; J0696; J1650; J1885; J1940; U0002; 99217; 99218; 99225

== ENCOUNTER 2021-12-23 07:49 | Inpatient (IN) | payer MEDICARE, OTHER ==
[2021-12-23] MEDS ORDERED: Sodium Chloride 0.9% 2.5 ML Syringe FLUSH PRN (08:15)
[2021-12-23] MEDS ORDERED: Sodium Chloride 0.9% 10 ML Syringe FLUSH PRN (08:15)
[2021-12-23] MEDS ORDERED: Furosemide 40 MG/4 ML VIAL IVPUSH ONE (08:43)
[2021-12-23] MEDS ORDERED: Diltiazem 100 MG in Sodium Chloride 0.9% 100 ML IV SCH (08:45)
[2021-12-23 08:57] LABS: BLOOD UREA NITROGEN,BUN 14 mg/dL (7.0-18.0); CARBON DIOXIDE,CO2 23.9 mmol/L (21.0-32.0); CHLORIDE,CL 101 mmol/L (98-107); GLUCOSE RANDOM 102 mg/dL (74-106); POTASSIUM,K 3.7 mmol/L (3.5-5.1); SODIUM,NA 134 mmol/L (136-145)
[2021-12-23] MEDS ORDERED: fentaNYL 50 MCG/ML SDV IVPUSH ONE ×2 (09:28→12:23)
[2021-12-23] MEDS ORDERED: Ondansetron 4 MG/2 ML SDV IVPUSH ONE (09:29)
[2021-12-23] MEDS ORDERED: Magnesium Sulfate/Water 2 GM/50 ML Premix Bag IV ONE (11:52)
[2021-12-23] MEDS ORDERED: Potassium Chloride 20 MEQ Tab.ER PO ONE (11:52)
[2021-12-23] MEDS ORDERED: Magnesium Sulfate/Water 2 GM in Premix Bag 1 BAG IV ONE (12:00)
[2021-12-23] MEDS ORDERED: Acetaminophen/oxyCODONE 325-5 MG Tab PO ONE (12:24)
[2021-12-23] MEDS ORDERED: Acetaminophen/oxyCODONE 325-5 MG Tab PO PRN (12:33)
[2021-12-23] MEDS ORDERED: Morphine 2 MG/ML SYRINGE IVPUSH PRN (12:37)
[2021-12-23] MEDS ORDERED: Digoxin 500 MCG/2 ML Amp IVPUSH ONE (12:47)
[2021-12-23] MEDS ORDERED: Furosemide 40 MG in Sodium Chloride 0.9% 50 ML IV SCH (17:15)
[2021-12-23] MEDS: Furosemide 40 MG/4 ML VIAL IV SCH (17:46)
[2021-12-23] MEDS: Apixaban 2.5 MG Tab PO SCH (20:54)
[2021-12-23] MEDS ORDERED: Pregabalin 50 MG Cap PO SCH (21:00)
[2021-12-23] MEDS: oxyCODONE 5 MG Tab PO PRN (22:30)
[2021-12-24] MEDS: oxyCODONE 5 MG Tab PO PRN ×3 (04:31→22:16)
[2021-12-24] MEDS ORDERED: Digoxin 500 MCG/2 ML Amp IVPUSH ONE (06:24)
[2021-12-24] MEDS: Nystatin Topical Powder 15 GM Bottle TOP SCH ×3 (06:36→19:16)
[2021-12-24] MEDS: Levothyroxine 50 MCG Tab PO SCH (06:36)
[2021-12-24] MEDS ORDERED: Ketorolac 30 MG/ML SDV IVPUSH ONE (07:16)
[2021-12-24 07:37] LABS: BLOOD UREA NITROGEN,BUN 17 mg/dL (7.0-18.0); CARBON DIOXIDE,CO2 22.3 mmol/L (21.0-32.0); CHLORIDE,CL 99 mmol/L (98-107); GLUCOSE RANDOM 118 mg/dL (74-106); POTASSIUM,K 3.9 mmol/L (3.5-5.1); SODIUM,NA 132 mmol/L (136-145)
[2021-12-24] MEDS: Apixaban 2.5 MG Tab PO SCH ×2 (08:55→20:18)
[2021-12-24] MEDS: Furosemide 40 MG/4 ML VIAL IV SCH (08:55)
[2021-12-24] MEDS ORDERED: Apixaban 2.5 MG Tab PO SCH (09:00)
[2021-12-24] MEDS: Furosemide 40 MG/4 ML VIAL IVPUSH SCH ×2 (13:57→20:18)
[2021-12-24] MEDS: Ibuprofen 200 MG Tab PO PRN (15:17)
[2021-12-24] MEDS ORDERED: Metoprolol Tartrate 25 MG Tab PO ONE (19:10)
[2021-12-24 20:08] LABS: POTASSIUM,K 3.6 mmol/L (3.5-5.1)
[2021-12-25] MEDS: Ibuprofen 200 MG Tab PO PRN ×2 (00:15→06:39)
[2021-12-25] MEDS: Nystatin Topical Powder 15 GM Bottle TOP SCH ×4 (00:17→18:26)
[2021-12-25] MEDS: oxyCODONE 5 MG Tab PO PRN ×2 (05:11→11:29)
[2021-12-25 06:19] LABS: BLOOD UREA NITROGEN,BUN 21 mg/dL (7.0-18.0); CARBON DIOXIDE,CO2 28.2 mmol/L (21.0-32.0); CHLORIDE,CL 100 mmol/L (98-107); GLUCOSE RANDOM 100 mg/dL (74-106); POTASSIUM,K 3.5 mmol/L (3.5-5.1); SODIUM,NA 134 mmol/L (136-145)
[2021-12-25] MEDS: Levothyroxine 50 MCG Tab PO SCH (06:40)
[2021-12-25] MEDS: Omeprazole 20 MG Cap.CR PO SCH (07:35)
[2021-12-25] MEDS: Apixaban 2.5 MG Tab PO SCH ×2 (08:26→20:16)
[2021-12-25] MEDS: Furosemide 40 MG/4 ML VIAL IVPUSH SCH ×2 (08:26→20:17)
[2021-12-25] MEDS ORDERED: Magnesium Sulfate/Water 2 GM in Premix Bag 1 BAG IV ONE (09:58)
[2021-12-25] MEDS ORDERED: SODIUM CHLORIDE 0.9% IV SCH (10:30)
[2021-12-25] MEDS ORDERED: METOPROLOL TARTRATE IV SCH (10:30)
[2021-12-25] MEDS: Metoprolol Tartrate 25 MG Tab PO SCH ×2 (11:34→20:13)
[2021-12-25] MEDS: Timolol Maleate 0.5% Ophth Soln 15 ML Bottle EYERT SCH ×2 (12:10→21:34)
[2021-12-25] MEDS: Polyethylene Glycol 3350 Powder 17 GM Packet PO SCH (18:26)
[2021-12-26] MEDS: Nystatin Topical Powder 15 GM Bottle TOP SCH ×4 (00:26→18:12)
[2021-12-26] MEDS: Ibuprofen 200 MG Tab PO PRN ×2 (00:37→08:11)
[2021-12-26] MEDS: Omeprazole 20 MG Cap.CR PO SCH (06:33)
[2021-12-26] MEDS: Levothyroxine 50 MCG Tab PO SCH (06:33)
[2021-12-26 06:34] LABS: CARBON DIOXIDE,CO2 26.5 mmol/L (21.0-32.0); POTASSIUM,K 3.2 mmol/L (3.5-5.1)
[2021-12-26] MEDS: Apixaban 2.5 MG Tab PO SCH ×2 (08:11→20:39)
[2021-12-26] MEDS: Metoprolol Tartrate 25 MG Tab PO SCH ×2 (08:11→20:38)
[2021-12-26] MEDS: Polyethylene Glycol 3350 Powder 17 GM Packet PO SCH (08:21)
[2021-12-26] MEDS: Furosemide 40 MG/4 ML VIAL IVPUSH SCH ×2 (08:22→20:38)
[2021-12-26] MEDS: Timolol Maleate 0.5% Ophth Soln 15 ML Bottle EYERT SCH ×2 (08:23→20:38)
[2021-12-26] MEDS ORDERED: Potassium Chloride 10 MEQ Tab.ER PO ONE (10:10)
[2021-12-26] MEDS ORDERED: Potassium Chloride 20 MEQ Tab.ER PO ONE (11:30)
[2021-12-26] MEDS: Pregabalin 25 MG Cap PO SCH (20:39)
[2021-12-27] MEDS: Nystatin Topical Powder 15 GM Bottle TOP SCH ×4 (00:14→20:18)
[2021-12-27] MEDS: Ibuprofen 200 MG Tab PO PRN ×3 (03:38→23:50)
[2021-12-27] MEDS: Levothyroxine 50 MCG Tab PO SCH (06:34)
[2021-12-27] MEDS: Omeprazole 20 MG Cap.CR PO SCH (06:34)
[2021-12-27 06:53] LABS: CARBON DIOXIDE,CO2 29.9 mmol/L (21.0-32.0); POTASSIUM,K 3.4 mmol/L (3.5-5.1)
[2021-12-27] MEDS: Potassium Chloride 10 MEQ Tab.ER PO SCH (08:54)
[2021-12-27] MEDS: Apixaban 2.5 MG Tab PO SCH ×2 (08:54→20:20)
[2021-12-27] MEDS: Metoprolol Tartrate 25 MG Tab PO SCH ×2 (08:55→20:19)
[2021-12-27] MEDS: Polyethylene Glycol 3350 Powder 17 GM Packet PO SCH (08:56)
[2021-12-27] MEDS: Pregabalin 25 MG Cap PO SCH ×2 (08:56→20:20)
[2021-12-27] MEDS: Furosemide 40 MG/4 ML VIAL IVPUSH SCH ×2 (09:44→16:39)
[2021-12-27] MEDS: Timolol Maleate 0.5% Ophth Soln 15 ML Bottle EYERT SCH ×2 (10:25→20:19)
[2021-12-27] MEDS ORDERED: Magnesium Sulfate/Water 2 GM in Premix Bag 1 BAG IV ONE (10:36)
[2021-12-28] MEDS: Nystatin Topical Powder 15 GM Bottle TOP SCH ×5 (00:11→23:32)
[2021-12-28] MEDS: Omeprazole 20 MG Cap.CR PO SCH (06:46)
[2021-12-28] MEDS: Levothyroxine 50 MCG Tab PO SCH (06:46)
[2021-12-28] MEDS ORDERED: Magnesium Sulfate/Water 2 GM in Premix Bag 1 BAG IV ONE (07:29)
[2021-12-28] MEDS: Furosemide 40 MG/4 ML VIAL IVPUSH SCH ×2 (09:25→18:01)
[2021-12-28] MEDS: Potassium Chloride 10 MEQ Tab.ER PO SCH (09:25)
[2021-12-28] MEDS: Apixaban 2.5 MG Tab PO SCH ×2 (09:26→21:22)
[2021-12-28] MEDS: Pregabalin 25 MG Cap PO SCH ×2 (09:26→21:23)
[2021-12-28] MEDS: Metoprolol Tartrate 25 MG Tab PO SCH ×2 (09:27→21:22)
[2021-12-28] MEDS: Polyethylene Glycol 3350 Powder 17 GM Packet PO SCH (09:28)
[2021-12-28] MEDS: Timolol Maleate 0.5% Ophth Soln 15 ML Bottle EYERT SCH ×2 (09:36→21:23)
[2021-12-28] MEDS: Ibuprofen 200 MG Tab PO PRN (23:37)
[2021-12-29] MEDS: Ibuprofen 200 MG Tab PO PRN (04:51)
[2021-12-29] MEDS: Nystatin Topical Powder 15 GM Bottle TOP SCH ×2 (06:19→12:00)
[2021-12-29] MEDS: Omeprazole 20 MG Cap.CR PO SCH (06:29)
[2021-12-29] MEDS: Levothyroxine 50 MCG Tab PO SCH (06:29)
[2021-12-29 07:15] LABS: BLOOD UREA NITROGEN,BUN 18 mg/dL (7.0-18.0); CHLORIDE,CL 97 mmol/L (98-107); GLUCOSE RANDOM 83 mg/dL (74-106); POTASSIUM,K 3.3 mmol/L (3.5-5.1); SODIUM,NA 136 mmol/L (136-145)
[2021-12-29 07:16] VITALS: PULSE 84
[2021-12-29] MEDS ORDERED: Potassium Chloride 20 MEQ Tab.ER PO ONE (07:47)
[2021-12-29] MEDS: Polyethylene Glycol 3350 Powder 17 GM Packet PO SCH (08:54)
[2021-12-29] MEDS: Apixaban 2.5 MG Tab PO SCH (08:56)
[2021-12-29] MEDS: Pregabalin 25 MG Cap PO SCH (08:56)
[2021-12-29] MEDS: Furosemide 40 MG/4 ML VIAL IVPUSH SCH (08:57)
[2021-12-29] MEDS: Potassium Chloride 10 MEQ Tab.ER PO SCH (08:58)
[2021-12-29] MEDS: Metoprolol Tartrate 25 MG Tab PO SCH (08:58)
[2021-12-29] MEDS: Timolol Maleate 0.5% Ophth Soln 15 ML Bottle EYERT SCH (09:02)
[2021-12-29 11:44] VITALS: BP 134/80
== END 2021-12-29 16:10 | disposition home health service (06) | DRG 291 ==
LOC: MW.ED 07:49 → MW.ICU 10:02 → MW.MS 12-25 15:24
PROVIDERS: ADMIT Internal Medicine; ATTEND Internal Medicine
DX: I11.0 Hypertensive heart disease with heart failure (principal); I48.91 Unspecified atrial fibrillation; I50.23 Acute on chronic systolic (congestive) heart failure; I48.11 Longstanding persistent atrial fibrillation; I50.9 Heart failure, unspecified; Z79.01 Long term (current) use of anticoagulants; Z79.899 Other long term (current) drug therapy; Z88.8 Allergy status to other drugs, medicaments and biological substances; Z91.048 Other nonmedicinal substance allergy status; Z79.890 Hormone replacement therapy; I42.8 Other cardiomyopathies; M19.90 Unspecified osteoarthritis, unspecified site; Z88.5 Allergy status to narcotic agent; Z91.09 Other allergy status, other than to drugs and biological substances; H54.7 Unspecified visual loss; K59.09 Other constipation; E03.9 Hypothyroidism, unspecified; E66.9 Obesity, unspecified; Z86.19 Personal history of other infectious and parasitic diseases; Z90.49 Acquired absence of other specified parts of digestive tract; Z90.89 Acquired absence of other organs; Z90.710 Acquired absence of both cervix and uterus; Z20.822 Contact with and (suspected) exposure to COVID-19; E87.6 Hypokalemia; E83.42 Hypomagnesemia; M71.22 Synovial cyst of popliteal space [Baker], left knee; L29.9 Pruritus, unspecified; R33.9 Retention of urine, unspecified; Z68.32 Body mass index [BMI] 32.0-32.9, adult
CPT/HCPCS: 36415; 71045; 80053; 83735; 83880; 84484; 85025; 93005; J1940; J2405; J3010; J3490 ×2; 51702; 73610-26-LT; 73610-LT; 73630-26-LT; 73630-LT; 80048; 84100; 84132; 85027; 93010; 93306; 93970; 93970-26; 96365; 96366; 96368; 96375; 97110-GP; 97116-GP; 97163-GP; 97530-GP; 99222; 99232; 99233; 99238; 99285-25; 99291; A9270-GY; J1160; J1885; J3475; U0002